=== PATIENT | female | born 1985 | race Caucasian/White ===

== ENCOUNTER 2017-11-03 11:17 | Outpatient (CLI) | payer OTHER ==
[2017-11-03 13:43] LABS: Hematocrit 41.6 % (36.0-47.0); Mean Platelet Volume 9.9 fL (7.4-10.4); Red Blood Cell (RBC) Count 4.39 mill/uL (4.20-5.40); White Blood Cell (WBC) Count 6.3 thou/uL (4.8-10.8)
[2017-11-03 14:00] LABS: Anion Gap 13 mmol/L (10-20); BUN (Urea Nitrogen) 7 mg/dL (7.0-18.7); Calc. Creatinine Clearance 0 mL/min (70-130); Calcium 9.8 mg/dL (7.8-10.44); Carbon Dioxide 27 mmol/L (22-29); Chloride 102 mmol/L (98-107); Estimated GFR-MDRD Greater than 90
--- NOTE | 2017-11-19 13:27 | EKG ---
Test Reason : Blood Pressure : / mmHG Vent. Rate : 078 BPM Atrial Rate : 078 BPM P-R Int : 136 ms QRS Dur : 074 ms QT Int : 368 ms P-R-T Axes : 067 083 053 degrees QTc Int : 419 ms Normal sinus rhythm Normal ECG No previous ECGs available Confirmed by KRYS PISANO MD ([id number]) on 11/19/2017 1:26:38 PM Referred By: TOM Confirmed By:KRYS PISANO MD
== END 2017-11-03 11:18 | disposition home or self-care (01) ==
LOC: LABBT 11:17
PROVIDERS: ATTEND Student in an Organized Health Care Education/Training Program
DX: Z01.812 Encounter for preprocedural laboratory examination (principal); R10.31 Right lower quadrant pain
CPT/HCPCS: 80048; 84443; 84703; 85027; 86850; 86900; 86901; 93005; 93010

== ENCOUNTER 2017-11-08 06:01 | Day surgery (SDC) | payer OTHER ==
[2017-11-03 11:41] VITALS: BMI 32.0
--- NOTE | 2017-11-08 05:56 | HP ---
DATE OF OPERATION: 11/08/2017 CHIEF COMPLAINT: Right lower quadrant pain. HISTORY OF PRESENT ILLNESS: A 32-year-old G0 who presented to my office with complaints of worsening right lower quadrant pain radiated up to the right upper quadrant and had a normal pelvic ultrasound as well as a right upper quadrant ultrasound and reports she has been seen at Urgent Care multiple t imes and diagnosed with urinary tract infections. However, symptoms would be alleviated on the short term and then come back. She also reports dyspareunia and pressure and pain with bowel movements an d urinary urgency. She has previously had a negative CT and pelvic ultrasound in June. She report s the pain is daily and constant, throbbing and stabbing and aching in the right lower quadrant. She takes tramadol that dulls the pain occasionally and mostly tells with that she has occasional nausea , no constipation or diarrhea. No worsening of symptoms on menses. MEDICATIONS: [place] Thyroid 90 mg p.o. daily, tramadol 50 mg p.o. q.6 hours p.r.n. PAST MEDICAL HISTORY: Louis's thyroiditis. PAST SURGICAL HISTORY: Denies. OBSTETRIC HISTORY: G0. GYNECOLOGIC HISTORY: No abnormal Paps, no STDs. SOCIAL HISTORY: Negative x3. ALLERGIES: No known drug allergies. FAMILY HISTORY: Paternal grandmother has breast cancer. Maternal grandfather has heart disease. REVIEW OF SYSTEMS: Negative except as noted in the HPI. PHYSICAL EXAMINATION: VITAL SIGNS: Blood pressure 112/62, pulse is 75, weight is 224, BMI of 33.1. GENERAL: No acute distress. CARDIAC: Regular rate and rhythm. LUNGS: Clear to auscultation bilaterally. ABDOMEN: Soft, nondistended, with tenderness in the lower abdomen, right greater than left. EXTREMITIES: No edema, cyanosis or clubbing. PELVIC: Deferred to the OR. ASSESSMENT AND PLAN: This is 32-year-old G0 with persistent right lower quadrant pain per diagnostic laparoscopy. I have discussed alternative of attempted medical management with oral contraceptives versus other hormonal therapy; however, patient desires surgical examination. Discussed the risk of surgery to include bleeding, infection, damage to surrounding structures including bowel, bladder, an d nerves. She voiced understanding and wished to proceed and has a documented pelvic ultrasound, her uterus measuring 7.84 cm, endometrial thickness of 12 mm, normal right and left ovaries, and no adne xal masses or free fluid. She will follow up with me in 2 weeks postoperative time.
[2017-11-08] MEDS ORDERED: Fentanyl 250 MCG/5 ML VIAL ONE (06:47)
[2017-11-08] MEDS ORDERED: Bupivacaine/Epinephrine 0.25% 30 ML VIAL ONE (06:54)
[2017-11-08] MEDS ORDERED: CEFAZOLIN/Water 2 GM/20 ML SYRINGE ONE (06:59)
[2017-11-08] MEDS ORDERED: Midazolam HCl 2 mg/2 ml Vial ONE (07:10)
[2017-11-08] MEDS ORDERED: Fentanyl 100 MCG/2 ML VIAL ONE ×2 (09:27→09:55)
[2017-11-08] MEDS ORDERED: Morphine 4 MG/ML VIAL ONE (10:29)
[2017-11-08] MEDS ORDERED: Promethazine HCl 25 MG/ML VIAL ONE (10:29)
[2017-11-08] MEDS ORDERED: diphenhydrAMINE 50 MG/ML VIAL ONE ×2 (10:37→11:29)
[2017-11-08] MEDS ORDERED: Ketorolac Tromethamine 30 MG/ML VIAL ONE (11:29)
[2017-11-08] MEDS ORDERED: Lidocaine 1% PF 5 ML VIAL ONE (11:29)
[2017-11-08] MEDS ORDERED: Propofol 200 MG/20 ML VIAL ONE (11:29)
[2017-11-08] MEDS ORDERED: Glycopyrrolate 0.2 MG/ML 5 ML SYRINGE ONE (11:29)
[2017-11-08] MEDS ORDERED: Ondansetron HCl/PF 4 MG/2 ML Vial ONE (11:29)
[2017-11-08] MEDS ORDERED: Dexamethasone 20 MG/5 ML VIAL ONE (11:29)
--- NOTE | 2017-11-08 13:58 | OP ---
DATE OF OPERATION: 11/08/2017 PREOPERATIVE DIAGNOSIS: Pelvic pain. POSTOPERATIVE DIAGNOSES: Right ovarian adhesion, right hematosalpinx and pelvic pain. PROCEDURES PERFORMED: Diagnostic laparoscopy, chromotubation, lysis of adhesions, and excision of le ft uterosacral nodule. SURGEON: Rosalinda Salazar M.D. MANGLE CATCHER: KALEN Pearson. ANESTHESIA: General endotracheal. ESTIMATED BLOOD LOSS: 5 mL. URINE OUTPUT: 150 mL of clear urine. INTRAVENOUS FLUIDS: 1100 mL crystalloid. COMPLICATIONS: None. PATHOLOGY: Left uterosacral nodule. DRAINS: None. FINDINGS: Cervix, and uterus were normal appearing, uterus sounded to 8 cm and the upper abdomen was normal. The appendix was normal with a normal left fallopian tube and ovary. The right fallopian t ube was initially blocked with the bloody fluid contained within it; however, with the pressure of th e chromotubation, this blockage was cleared and the tube was patent, left fallopian tube was patent. There was a thin adhesion of the right ovary to the pelvic sidewall and a small 1 cm follicular cyst on the right ovary. OPERATIVE TECHNIQUE: The patient was taken to the operating room where general anesthesia was obtain ed without difficulty. The patient was prepped and draped in a sterile fashion in the dorsal lithoto my position. After timeout was performed, a Hall catheter was placed in the bladder. A speculum wa s placed in the cervix. The anterior lip of cervix grasped with single tooth tenaculum. The uterus sounded to 8 cm and then was progressively dilated with Regan dilators and the diagnostic VCare was in serted at that sounded depth and the tip balloon was inflated and the manipulator secured. The specu lum and tenaculum were removed out of the vagina and legs were placed in low lithotomy. Attention wa s turned to the abdomen. The umbilicus was infiltrated with 0.25% Marcaine with epinephrine and a 5 mm skin incision was made. Veress needle was passed into the abdomen noting an opening pressure of 5 mmHg. Pneumoperitoneum was obtained without difficulty. The Veress needle was removed. The 5 mm t rocar was advanced into the abdomen and confirmed placement with a 5 mm camera. Trendelenburg was ob tained and a left lateral trocar was placed after infiltrating with anesthetic under direct visualiza tion about 5 mm without difficulty, manipulation of the pelvic structures revealed the above findings . A better documentation was performed. A 5 mm right lower trocar quadrant trocar was placed under direct visualization after infiltrating with anesthetic and a grasper was used to grab the uterosacra l nodule and the Hot Irene were used to excise the nodule, carefully staying superficially ensuring no injury to underlying structures and noting the proximity of the ureter to the nodule. Hemostasis was achieved with the Hot Irene and attention was turned to the right ovarian adhesion. The right o vary was elevated and fallopian tube was elevated and this adhesion was excised easily off the pelvic sidewall again staying superficially and noting underlying structures. Hemostasis was achieved with the Hot Irene and at that time, the fallopian tubes were chromopertubated with 5 mL of methylene bl ue diluted in 200 mL of saline. Approximately 20 mL of this was used to infuse through both tubes im mediately the left tube spilled and the right tube and took some pressure to open up blockage and the re was passage of a dark old bloody fluid from the tube and then spillage of methylene blue. The pel vis was suction irrigated. Hemostasis was noted and all instruments were removed out of the abdomen. Pneumoperitoneum was released and the trocars were removed. The port sites were closed with 4-0 Mo nocryl in a subcuticular fashion. Dermabond was applied and the VCare was then removed out of the ut erus and the cervix was examined and noted to be hemostatic. No active bleeding. The Hall catheter was removed out. The patient tolerated the procedure well. Sponge, lap, and needle counts were cor rect x2. The patient was taken to the recovery room in stable condition. Patient received Ancef 2 g marlen prior to discharge.
== END 2017-11-08 12:58 | disposition home or self-care (01) ==
LOC: SDC 06:01
PROVIDERS: ATTEND Student in an Organized Health Care Education/Training Program
PROC: 0UN Female Reproductive System, Release (ICD-10-PCS; principal; 2017-11-08)
PROC: 3E0P8KZ Introduction of Other Diagnostic Substance into Female Reproductive, Via Natural or Artificial Opening Endoscopic (ICD-10-PCS; principal; 2017-11-08)
PROC: 0UB44ZX Excision of Uterine Supporting Structure, Percutaneous Endoscopic Approach, Diagnostic (ICD-10-PCS; principal; 2017-11-08)
DX: N73.1 Chronic parametritis and pelvic cellulitis (principal); N85.8 Other specified noninflammatory disorders of uterus; E06.3 Autoimmune thyroiditis
CPT/HCPCS: 88305; 96374; 96375; J1100; J1200; J1885; J2001; J2250; J2270; J2405; J2550; J2704; J3010; Q9968

== ENCOUNTER 2017-11-18 23:02 | Observation (INO) | payer OTHER ==
[2017-11-19 01:23] VITALS: BMI 31.7
[2017-11-19] MEDS ORDERED: Ondansetron HCl/PF 4 MG/2 ML Vial IVP PRN (04:00)
[2017-11-19] MEDS ORDERED: Enoxaparin Sodium 40 MG/0.4 ML SYRINGE SC SCH (04:00)
[2017-11-19] MEDS ORDERED: Sodium Chloride 0.9% 10 ML ONE (04:09)
[2017-11-19] MEDS: Sodium Chloride 0.9% 1,000 ML IV SCH ×2 (04:22→15:55)
[2017-11-19 05:45] LABS: #Eosinphils 0.1 thou/uL (0.0-0.7); #Lymphocytes 2.2 thou/uL (1.20-3.40); #Monocytes 0.6 thou/uL (0.11-0.59); #Neutrophils 4.2 thou/uL (1.40-6.50); %Basophils 0.5 % (0.0-1.0); %Eosinophils 1.3 % (0.0-10.0); %Monocytes 7.8 % (0.0-10.0); %Neutrophils 59.3 % (42.0-75.0); Hemoglobin 12.6 g/dL (12.0-16.0); Mean Corpuscular HGB CONC 33.6 g/dL (32.0-36.0); Mean Corpuscular Hemoglobin 31.9 pg (27.0-31.0); Mean Corpuscular Volume 94.7 fl (81.0-99.0); Mean Platelet Volume 9.8 fL (7.4-10.4); Platelet Count 186 thou/uL (130-400); Red Blood Cell (RBC) Count 3.97 mill/uL (4.20-5.40)
[2017-11-19 06:01] LABS: ALT (SGPT) 54 U/L (8-55); AST (SGOT) 29 U/L (5-34); Alkaline Phosphatase 71 U/L (40-150); Anion Gap 13 mmol/L (10-20); BUN (Urea Nitrogen) 12 mg/dL (7.0-18.7); Bilirubin, Total 1.1 mg/dL (0.2-1.2); Calc. Creatinine Clearance 186 mL/min (70-130); Calcium 9.2 mg/dL (7.8-10.44); Carbon Dioxide 26 mmol/L (22-29); Chloride 105 mmol/L (98-107); Estimated GFR-MDRD Greater than 90; Globulin 2.7 g/dL (2.4-3.5); Glucose 89 mg/dL (70-105); Lipase 49 U/L (8-78); Potassium 3.5 mmol/L (3.5-5.1); Protein, Total 6.7 g/dL (6.0-8.3); Sodium 140 mmol/L (136-145)
[2017-11-19 06:16] LABS: Free T4 (Free Thyroxine) 0.57 ng/dL (0.70-1.48); Thyroid Stimulating Hormone 1.7064 uIU/mL (0.35-4.94)
--- NOTE | 2017-11-19 07:40 | HP ---
DATE OF ADMISSION: 11/19/2017 TIME OF SERVICE: 0330. PRIMARY CARE PHYSICIAN: Cinthia Gaffney M.D. CHIEF COMPLAINT: Epigastric to right upper quadrant pain, nausea. HISTORY OF PRESENT ILLNESS: Ms. Joaquin is a pleasant 32-year-old female with history of Louis's thyroiditis and resultant hypothyroidism, and a recent pelvic pain status post laparoscopy on 11/08/2017. The patient presented to an outside ER at [facility] earlier today for reevaluation of abdominal pain. She describes as a sharp pain in the epigastrium that seems to be migrating more and more to the right upper quadrant associated with nausea and vomiting. The patient had some pelvic pain really started back in June. Further evaluation showed a pelvic mass in place. She did have diagnostic laparoscopy with Dr. Salazar back on 11/08/2017, had exploratory laparoscopy, lysis of adhesions and excision of a left uterosacral nodule. Pathology of that showed a calcification and foreign body reaction and fibrous scar tissue. She has felt better postop from that for about 3 days and really feel like she was doing better and developed an epigastric pain that seems to radiate more down to the right upper quadrant. She states this pain is worse with any kind of food intake. Seems to be worse with palpation at times, but not others. She denies any fevers or chills. She is having some gas passage, but not much in the way stools certainly no bleeding. She had no fevers or chills, no chest pain or shortness of breath. She actually presented at the outside the emergency department at [facility] on 11/15 [address] was [address] Evans. Her pain seemed to be getting worse today, so she presented back to the emergency department on 11/18 and was sent here for further workup. She is scheduled to have a HIDA scan done on 11/30/[address] Evans was contacted, he recommended admission for HIDA scan, and Dr. Ojeda requested to readmit. The patient is feeling better at the present. No new complaints. PAST MEDICAL HISTORY: 1. Hypothyroidism. 2. She is G0. PAST SURGICAL HISTORY: Include; 1. [place] teeth removed. 2. Diagnostic laparoscopy as above. HOME MEDICATIONS: 1. [place] thyroid 90 mg daily. 2. Tramadol 50 mg q.6 hours p.r.n. 3. Zofran 4 mg sublingual p.r.n. nausea. 4. Tylenol #3 as needed for pain. She will use that for 3 or 4 nights. ALLERGIES: GLUTEN. FAMILY HISTORY: Significant for paternal grandmother with some breast cancer, but has estrogen receptor and BRC-ABL negative. She has paternal grandfather that had coronary artery disease and from aortic dissection. SOCIAL HISTORY: Negative for habits x3. She has three adopted children, is . 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 She has no history of STDs and never had abnormal Pap smear. REVIEW OF SYSTEMS: A 10-point review of systems was performed, negative for all other systems except stated as per HPI. PHYSICAL EXAMINATION: VITAL SIGNS: Temperature 98.6, pulse 82, blood pressure 123/70, respiratory 20 , satting 99% on room air. GENERAL: She is awake, alert, oriented x3, well-developed, well-nourished, white female, appears to be in zero distress. HEENT: Normocephalic, atraumatic. Pupils are equal and reactive bilaterally, mucous membranes are moist. She has no visible lesion or thrush. NECK: Supple without lymphadenopathy, JVD or thyromegaly. LUNGS: Clear to auscultation bilaterally without wheezes, rales, or rhonchi. CARDIOVASCULAR: Normal S1, S2. No S3 or S4. No murmurs or rubs. ABDOMEN: Soft. It is tender, slightly to the right upper quadrant, worse with deeper palpation. There is no rebound, rigidity, or guarding. She has hyperactive bowel sounds present in all 4 quadrants. There is no discoloration. EXTREMITIES: No cyanosis, no clubbing, no edema. She has 2+ dorsalis pedis, and posterior tibial pulses bilaterally. SKIN: Warm, moist, and well perfused without rashes or lesions. NEUROLOGIC: Cranial nerves II-XII grossly intact, 5/5 strength, normal speech, and no focal deficits. MUSCULOSKELETAL: Normal to inspection without any inflamed joints or palpable effusions. LABORATORY DATA: Earlier on 11/18/2017 showed a CMP was fairly normal. Sodium 140, potassium 3.6, chloride 101, bicarbonate 26, BUN 7, creatinine 0.6, and glucose of 95, total bilirubin 1.0, albumin 4.2, alkaline phosphatase normal 85 , AST slightly elevated at 46 and ALT slightly elevated at 66. CBC showed a white count of 6.0, hemoglobin 12.8, hematocrit 38.1, platelets 196,000 with normal differential. RADIOGRAPHIC STUDIES: She had an abdominal ultrasound that is negative. No Garcia sign, no ductal dilatation, the visualized portion of the pancreas appeared normal. No renal stones, and gallbladder appeared normal. Her CT scan of the abdomen and pelvis showed no acute intra-abdominal pathology. Did have some air at the umbilicus from her recent procedure, but otherwise negative. ASSESSMENT AND PLAN: 1. Epigastric to right upper quadrant abdominal pain with nausea. 2. Acquired hypothyroidism secondary to Louis's thyroiditis. PLAN: We will place in observation. We will get repeat labs in the morning. We will add a lipase to ensure this is not occult pancreatitis. Per Dr. Evans and Dr. Ojeda's request we will get a HIDA scan. I informed the patient the current plan and her need to likely eat a fatty meal to get good results. She certainly would attempt. We will follow up with the results of that, she has new symptoms, she has asked to let the nurses' know right away. ДМИТРИЙ
[2017-11-19] MEDS: Famotidine/PF 20 mg/2ml Vial SLOW IVP SCH ×2 (08:45→20:39)
[2017-11-19] MEDS ORDERED: Morphine 5 mg/5 ml in 0.9% NaCl/PF SYRINGE SLOW IVP PRN (15:35)
[2017-11-19] MEDS ORDERED: Morphine PF 1 MG/ML SYR IVP PRN (16:00)
--- NOTE | 2017-11-19 16:53 | PDOC.PN ---
- Subjective Encounter Start Date: 11/19/17 Encounter Start Time: 16:51 Ms. Joaquin was seen today in follow-up of abdominal pain. she says she continues to have pain in the right upper side under her ribs. She also has been having nausea off and on. - Objective Resuscitation Status: Resuscitation Status FULL:Full Resuscitation MAR Reviewed: Yes Vital Signs & Weight: Vital Signs (12 hours) Temp Pulse Resp BP Pulse Ox 11/19/17 14:52 98.3 F 67 18 123/63 97 11/19/17 08:00 97.8 F 62 17 109/59 L 97 Weight Admit Weight 215 lb Weight 215 lb I&O: 11/18/17 11/19/17 11/20/17 06:59 06:59 06:59 Intake Total 200 Balance 200 Result Diagrams: 11/19/17 05:21 11/19/17 05:21 Phys Exam - Physical Examination HEENT: PERRLA Respiratory: no wheezing, no rales, no rhonchi Cardiovascular: RRR, no significant murmur, no rub Gastrointestinal: soft, no distention, positive bowel sounds + RUQ tenderness Musculoskeletal: no edema Dx/Plan (1) Biliary colic Code(s): K80.50 - CALCULUS OF BILE DUCT W/O CHOLANGITIS OR CHOLECYST W/O OBST Status: Acute (2) Chronic cholecystitis Code(s): K81.1 - CHRONIC CHOLECYSTITIS Status: Acute (3) Hypothyroidism Code(s): E03.9 - HYPOTHYROIDISM, UNSPECIFIED Status: Acute - Plan * Chronic Cholecystitis- Discussed with Dr. Ojeda. She continues to have symptoms- plan for Cholecystectomy * Hypothyroidism- she is mildly under-replaced- will go ahead a give a dose of her usual thyroid medication, and restart as early as possibly post op.
--- NOTE | 2017-11-19 17:07 | NM ---
HEPATOBILIARY SCAN: HISTORY: Persistent nausea after eating, right upper quadrant pain. RADIOPHARMACEUTICAL: 5 mCi technetium-99m mebrofenin injected intravenously. CCK-8: 1.9 mcg introduced intravenously 30 minutes prior to imaging. The same dosage was repeated, a nd 30 min infusion was given intravenously on filling of the gallbladder to evaluate gallbladder cont ractility. FINDINGS: There is good tracer extraction by the liver with prompt excretion into the biliary tract and small b owel loops, and normal filling of the gallbladder. The calculated gallbladder ejection fraction follo wing CCK-8 administration measures 29%. IMPRESSION: Chronic cholecystitis/gallbladder dyskinesia. POS: [facility]
[2017-11-19] MEDS ORDERED: Thyroid,Pork 90 MG TAB PO SCH (17:15)
[2017-11-19] MEDS ORDERED: Morphine 10 MG/ML CARPUJECT IV PRN (22:09)
[2017-11-19] MEDS ORDERED: Morphine PF 1 MG/ML SYR IV PRN (22:15)
[2017-11-20] MEDS: Sodium Chloride 0.9% 1,000 ML IV SCH ×2 (02:28→15:15)
[2017-11-20 06:38] LABS: #Basophils 0.1 thou/uL (0.0-0.2); #Eosinphils 0.1 thou/uL (0.0-0.7); #Lymphocytes 1.8 thou/uL (1.20-3.40); #Monocytes 0.6 thou/uL (0.11-0.59); %Basophils 0.9 % (0.0-1.0); %Eosinophils 1.3 % (0.0-10.0); %Lymphocytes 27.8 % (21.0-51.0); %Monocytes 8.5 % (0.0-10.0); %Neutrophils 61.5 % (42.0-75.0); Hemoglobin 12.2 g/dL (12.0-16.0); Mean Corpuscular HGB CONC 33.3 g/dL (32.0-36.0); Mean Corpuscular Hemoglobin 31.6 pg (27.0-31.0); Mean Corpuscular Volume 94.9 fl (81.0-99.0); Mean Platelet Volume 9.4 fL (7.4-10.4); Platelet Count 180 thou/uL (130-400); Red Blood Cell (RBC) Count 3.87 mill/uL (4.20-5.40); White Blood Cell (WBC) Count 6.5 thou/uL (4.8-10.8)
[2017-11-20] MEDS ORDERED: Sodium Chloride 0.9% 10 ML ONE (07:48)
[2017-11-20] MEDS: Famotidine/PF 20 mg/2ml Vial SLOW IVP SCH (07:52)
[2017-11-20] MEDS ORDERED: cefOXitin 2 GM in Sodium Chloride 0.9% 100 ML IVPB SCH (08:45)
[2017-11-20] MEDS ORDERED: Bupivacaine/Epinephrine 0.25% 30 ML VIAL ONE (08:55)
[2017-11-20] MEDS ORDERED: Iothalamate Meglumine 60% 50 ML VIAL FS ONE (08:55)
[2017-11-20] MEDS ORDERED: FLU VACC QS2017-18 36 mo. & older 0.5 ML SYRINGE IM ONE (09:00)
[2017-11-20] MEDS ORDERED: Thyroid,Pork 90 MG TAB PO SCH (09:00)
[2017-11-20] MEDS ORDERED: Fentanyl 100 MCG/2 ML VIAL ONE ×2 (09:38→12:03)
--- NOTE | 2017-11-20 10:00 | CON ---
DATE OF CONSULTATION: 11/20/2017 CHIEF COMPLAINT: Right upper quadrant pain. HISTORY OF PRESENT ILLNESS: This is a 32-year-old female with a several month history of intermitten t mid epigastric and right upper quadrant pain. It radiates to the back. She had a laparoscopy on for a blocked fallopian tube and she says that since then it has gotten worse. She says the pain is worse with eating or movement. No fevers or chills. There is nausea, no vomiting. She had an ultrasound that was negative. CT negative. HIDA scan, however, shows a low ejection fraction. PAST MEDICAL HISTORY: Hypothyroidism. PAST SURGICAL HISTORY: Recent laparoscopic tubal procedure. MEDICATIONS: [place] thyroid. ALLERGIES: No known drug allergies. SOCIAL HISTORY: She is . 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 No tobacco or alcohol. FAMILY HISTORY: Gallbladder problems and heart disease. PHYSICAL EXAMINATION: VITAL SIGNS: Temperature 98, pulse 63, blood pressure 109/60. GENERAL: She is a well-developed, well-nourished female, in no apparent distress. HEENT: No jaundice. LUNGS: Clear. HEART: Regular rate and rhythm. ABDOMEN: Soft, nondistended, nontender. EXTREMITIES: Unremarkable. LABORATORY DATA AND X-RAY FINDINGS: White count 6.5, H&H is 12 and 35, platelet count 180. Her live r function tests today are normal, but a week ago, she had some elevated transaminases. ASSESSMENT: Chronic cholecystitis. PLAN: Laparoscopic cholecystectomy with cholangiogram. CONSENT: I have discussed the planned procedure as well as risk of bleeding, infection, injury to bi le duct, injury to bowel, need to open. She understands and gives informed consent.
[2017-11-20] MEDS ORDERED: cefOXitin 2 GM, Syringe 1 ML in Sterile Water 10 ML SLOW IVP SCH (11:00)
[2017-11-20] MEDS ORDERED: Calcium Carbonate 500 MG ChewTAB PO PRN (11:42)
[2017-11-20] MEDS ORDERED: Dextrose 50% Abboject 50 ML SYRINGE SLOW IVP PRN (11:42)
[2017-11-20] MEDS ORDERED: Ketorolac Tromethamine 30 MG/ML VIAL IVP PRN (11:42)
[2017-11-20] MEDS ORDERED: Meperidine HCl/PF 25 MG/ML VIAL SLOW IVP PRN (11:42)
[2017-11-20] MEDS ORDERED: Morphine PF 1 MG/ML SYR IVP PRN (11:42)
[2017-11-20] MEDS ORDERED: Mag-Al 1200 mg/1200 mg/30 ML UDCUP PO PRN (11:42)
[2017-11-20] MEDS ORDERED: HYDROcodone/Acetaminophen 10/325 mg Tablet PO PRN ×2 (11:42)
[2017-11-20] MEDS ORDERED: hydrALAZINE 20 MG/ML VIAL SLOW IVP PRN (11:42)
[2017-11-20] MEDS ORDERED: Morphine 5 mg/5 ml in 0.9% NaCl/PF SYRINGE SLOW IVP PRN (11:42)
[2017-11-20] MEDS ORDERED: Promethazine HCl 25 MG/ML VIAL IM PRN ×2 (11:42)
[2017-11-20] MEDS ORDERED: Promethazine HCl 25 MG/ML VIAL SLOW IVP PRN (11:42)
[2017-11-20] MEDS ORDERED: Ondansetron HCl/PF 4 MG/2 ML Vial IVP PRN ×2 (11:42)
[2017-11-20] MEDS ORDERED: Dextrose 5% in Water 1,000 ML IV PRN (11:42)
[2017-11-20] MEDS ORDERED: D5 1/2 NS w/20 mEq KCL 1,000 ML IV SCH (11:45)
[2017-11-20] MEDS ORDERED: Ketorolac Tromethamine 30 MG/ML VIAL IVP SCH (12:00)
[2017-11-20] MEDS ORDERED: Propofol 200 MG/20 ML VIAL ONE (12:15)
[2017-11-20] MEDS ORDERED: Ondansetron HCl/PF 4 MG/2 ML Vial ONE (12:15)
[2017-11-20] MEDS ORDERED: Glycopyrrolate 0.2 MG/ML 5 ML SYRINGE ONE (12:15)
[2017-11-20] MEDS ORDERED: Lidocaine 1% PF 5 ML VIAL ONE (12:15)
[2017-11-20] MEDS ORDERED: Dexamethasone 20 MG/5 ML VIAL ONE (12:15)
--- NOTE | 2017-11-20 13:58 | OP ---
PREOPERATIVE DIAGNOSIS: Chronic cholecystitis. SURGEON: Juan Pablo Ojeda M.D. PROCEDURE PERFORMED: Laparoscopic cholecystectomy with intraoperative cholangiogram. INDICATIONS: This is a 32-year-old female who has had a several month history of intermittent right upper quadrant pain radiating to the back associated with nausea. Ultrasound negative. CT negative. HIDA scan showed a low ejection fraction. She also had a couple of elevated liver function tests. FINDINGS: She had a very small caliber cystic duct. Intraoperative cholangiogram was normal. DESCRIPTION OF PROCEDURE: After informed consent was obtained, the patient was taken to the operatin g room and given general endotracheal anesthesia, placed in the supine position. The abdomen was pre pped and draped in the usual fashion. Local anesthesia infiltrated subcutaneously and deep. A subum bilical incision was performed, subcu divided sharply. The fascia grasped and two stay sutures of 0 Vicryl placed to either side of midline. Midline incised. Digital palpation revealed no local adhes ions. A blunt 10/12 mm trocar inserted. Pneumoperitoneum was created to a pressure of 15 mmHg. A 0 degree laparoscope inserted. Under direct vision, three 5 mm ports placed subcostally. The gallbla dder grasped and advanced superiorly. The peritoneum was lysed distally to reveal the cystic duct an d artery and critical view. A clip was placed at the base of the gallbladder. An incision made in t he cystic duct. It was very small caliber. The Arrow cholangiocatheter was inserted. The balloon i nflated and an attempt made at an intraoperative cholangiogram, but it showed a very irregular patter n, which turned out to be extravasation, so I had to go back in and repositioned the catheter into th e cystic duct. At this time, the cholangiogram showed free flow in the duodenum, no filling defects, normal intrahepatic ducts. The catheter removed. The duct triply ligated with Hemoclips and divide d. The artery triply ligated with Hemoclips and divided. The gallbladder was removed from its fossa utilizing electrocautery, removed from the abdomen through the umbilical port. Hemostasis was assur ed. The abdomen irrigated and irrigation fluid removed. Trocars and retractors removed. The fascia closed with interrupted 0 Vicryl suture. The skin closed with interrupted 4-0 Rapide. Dermabond ap plied. The patient tolerated the procedure well and transferred to recovery in good condition. Spon ge and needle count verified correct x2.
--- NOTE | 2017-11-20 14:03 | PDOC.PN ---
- Subjective Encounter Start Date: 11/20/17 Encounter Start Time: 14:01 Ms. Joaquin was seen today in follow-up of chronic cholecystitis. She notes a bit of right upper quandrant soreness, and nausea, but otherwise ok. - Objective Resuscitation Status: Resuscitation Status FULL:Full Resuscitation MAR Reviewed: Yes Vital Signs & Weight: Vital Signs (12 hours) Temp Pulse Resp BP Pulse Ox 11/20/17 07:50 97.7 F 66 16 11/20/17 07:00 97.7 F 66 16 128/76 100 11/20/17 04:15 98.0 F 63 16 109/60 96 Weight Admit Weight 215 lb Weight 215 lb I&O: 11/19/17 11/20/17 11/21/17 06:59 06:59 06:59 Intake Total 200 1500 0 Balance 200 1500 0 Result Diagrams: 11/20/17 06:16 11/19/17 05:21 Phys Exam - Physical Examination HEENT: PERRLA Respiratory: no wheezing, no rales, no rhonchi, clear to auscultation bilateral Cardiovascular: RRR, no significant murmur Gastrointestinal: soft + mild RUQ tenderness no rebound or guarding Musculoskeletal: no edema Dx/Plan (1) Biliary colic Code(s): K80.50 - CALCULUS OF BILE DUCT W/O CHOLANGITIS OR CHOLECYST W/O OBST Status: Acute (2) Chronic cholecystitis Code(s): K81.1 - CHRONIC CHOLECYSTITIS Status: Acute (3) Hypothyroidism Code(s): E03.9 - HYPOTHYROIDISM, UNSPECIFIED Status: Acute - Plan * Chronic Cholecystitis- s/p Lap fallon- she is clinically stable * Hopefully home later this afternoon.
[2017-11-20 16:38] VITALS: BP 118/65; TEMP 97.6
--- NOTE | 2017-11-20 18:16 | DIS ---
DATE OF ADMISSION: 11/18/2017. DATE OF DISCHARGE: 11/20/2017. PRIMARY CARE PHYSICIAN: Cinthia Gaffney MD DISCHARGE DISPOSITION: Home. PRIMARY DISCHARGE DIAGNOSES: 1. Chronic cholecystitis with gallbladder dysfunction. 2. History of hypothyroidism. 3. Obesity. DISCHARGE MEDICATIONS: Zofran 4 mg p.o. q.8 hours p.r.n. nausea and vomiting, as well as Helper 10/32 5 q.4 hours p.r.n. pain. CODE STATUS: FULL CODE. ALLERGIES: GLUTEN. PROCEDURES DONE DURING THE ADMISSION: The patient had a HIDA scan or hepatobiliary scan, which showe d evidence of chronic cholecystitis and gallbladder dyskinesia and a gallbladder ejection fraction wh ich was measured at 29%. HOSPITAL COURSE: Ms. Joaquin is a pleasant 32-year-old female who has had problems with right upper quadrant pain and nausea off and on since June. It has been intermittent, but then after having re cent pelvic surgery, her symptoms seemed to recur. She was placed in observation and a HIDA scan was obtained. It showed that she had some gallbladder dyskinesia as well as evidence of chronic cholecy stitis. General Surgery was consulted and she underwent laparoscopic cholecystectomy. The plan is f or her to be discharged later today with close followup with her primary care physician in 1-2 weeks.
[2017-11-20] MEDS ORDERED: Famotidine/PF 20 mg/2ml Vial SLOW IVP SCH (21:00)
[2017-11-20] MEDS ORDERED: Famotidine 20 MG TAB PO SCH (21:00)
[2017-11-21] MEDS ORDERED: Enoxaparin Sodium 40 MG/0.4 ML SYRINGE SC SCH (09:00)
--- NOTE | 2017-11-21 11:52 | RAD ---
INTRAOPERATIVE CHOLANGIOGRAM 2 VIEWS: DATE: 11/20/17. TIME: 11:22 a.m. HISTORY: A 32-year-old female with right upper quadrant abdominal pain and biliary dyskinesia. FINDINGS: Injection into the cystic duct stump demonstrates a normal-caliber common bile duct and normal-calibe r common hepatic duct, and a few nondilated biliary radicals. The superior portion of the common hep atic duct is obscured by a dense, large object. No filling defect is identified. There is contrast material in the second stage of the duodenum. IMPRESSION: No evidence of biliary obstruction or choledocholithiasis. POS: [facility]
== END 2017-11-20 17:29 | disposition home or self-care (01) ==
LOC: 3SE 23:02
PROVIDERS: ADMIT Internal Medicine Infectious Disease; ATTEND Internal Medicine Infectious Disease
PROC: 0FT44ZZ Resection of Gallbladder, Percutaneous Endoscopic Approach (ICD-10-PCS; principal; 2017-11-18)
PROC: BF131ZZ Fluoroscopy of Gallbladder and Bile Ducts using Low Osmolar Contrast (ICD-10-PCS; 2017-11-18)
DX: K81.1 Chronic cholecystitis (principal); Z98.890 Other specified postprocedural states; E06.3 Autoimmune thyroiditis; E03.9 Hypothyroidism, unspecified; E66.9 Obesity, unspecified; Z68.31 Body mass index [BMI] 31.0-31.9, adult; Z79.899 Other long term (current) drug therapy; Z91.018 Allergy to other foods; Z82.49 Family history of ischemic heart disease and other diseases of the circulatory system
CPT/HCPCS: 36415; 47532; 78227; 80053; 83690; 84439; 84443; 85025; 88304; 96361; 96372; 96374; 96375; 96376; A4216; A9537; G0378; J0694; J1100; J1650; J2001; J2270; J2274; J2405; J2704; J3010; J7050; Q9961; S0028

== ENCOUNTER 2018-11-07 18:17 | Emergency (ER) | payer OTHER ==
[2018-11-07 18:52] LABS: Bilirubin Negative (Negative); Blood, Urine Negative (Negative); Clarity CLEAR (Clear); Glucose, Urine (Dipstick) Negative (Negative); Leukocyte Trace (Negative); Nitrite Negative (Negative); Protein, Urine (Dipstick) Negative (Neg-Trace); Specific Gravity, Urine 1.003 (1.002-1.036); Urobilinogen 0.2 mg/dL (0.2-1.0); pH, Urine 7.5 (5.0-9.0)
[2018-11-07 19:00] LABS: Pregnancy Test - Urine (BHCG) Negative (Negative); Specific Gravity 1.003 (1.002-1.036)
[2018-11-07 19:01] LABS: Pregu Control Background? CLEAR/WHITE (CLR/WHITE); Pregu Control Bar Appear? YES (CONTROL BAR)
[2018-11-07 19:04] LABS: Bacteria/HPF None Seen HPF (None Seen); Hyaline Casts/LPF 0-3 HYALINE CAST LPF (0-3 Hyaline); Pathc Cast-AUWi Flag 0.43 (0-2.49); RBC/HPF 0-3 HPF (0-3); Squamous Epithelial 0-3 HPF (0-3); WBC/HPF 0-3 HPF (0-3)
[2018-11-07] MEDS ORDERED: HYDROcodone/Acetaminophen 5/325 mg Tablet ONE (19:05)
[2018-11-07 19:25] LABS: #Basophils 0.1 thou/uL (0.0-0.2); #Eosinphils 0.1 thou/uL (0.0-0.7); #Lymphocytes 1.7 thou/uL (1.20-3.40); #Monocytes 0.4 thou/uL (0.11-0.59); #Neutrophils 3.2 thou/uL (1.40-6.50); %Basophils 1.5 % (0.0-1.0); %Lymphocytes 31.5 % (21.0-51.0); %Monocytes 7.2 % (0.0-10.0); %Neutrophils 58.8 % (42.0-75.0); Hemoglobin 12.8 g/dL (12.0-16.0); Mean Corpuscular Hemoglobin 31.8 pg (27.0-31.0); Mean Corpuscular Volume 93.6 fL (78.0-98.0); Mean Platelet Volume 10.9 fL (7.4-10.4); Platelet Count 157 thou/uL (130-400); RBC Distribution Width 11.3 % (11.5-14.5); Red Blood Cell (RBC) Count 4.02 mill/uL (4.20-5.40); White Blood Cell (WBC) Count 5.5 thou/uL (4.8-10.8)
[2018-11-07 19:51] LABS: ALT (SGPT) 21 U/L (8-55); AST (SGOT) 23 U/L (5-34); Albumin 4.3 g/dL (3.5-5.0); Alkaline Phosphatase 59 U/L (40-150); Anion Gap 9 mmol/L (10-20); Bilirubin, Total 0.8 mg/dL (0.2-1.2); Calc. Creatinine Clearance 0 mL/min (70-130); Calcium 9.2 mg/dL (7.8-10.44); Carbon Dioxide 29 mmol/L (22-29); Chloride 104 mmol/L (98-107); Estimated GFR-MDRD Greater than 90; Glucose 79 mg/dL (70-105); Lipase 18 U/L (8-78); Potassium 3.8 mmol/L (3.5-5.1); Protein, Total 7.3 g/dL (6.0-8.3); Sodium 138 mmol/L (136-145)
[2018-11-07 19:54] LABS: BUN (Urea Nitrogen) 8 mg/dL (7.0-18.7)
== END 2018-11-07 20:03 | disposition home or self-care (01) ==
LOC: ERS 18:17
DX: R10.2 Pelvic and perineal pain (principal); E03.9 Hypothyroidism, unspecified; Z79.899 Other long term (current) drug therapy
CPT/HCPCS: 36415; 80053; 81003; 81015; 81025; 83690; 85025; 99284

== ENCOUNTER 2018-11-17 18:00 | Emergency (ER) | payer OTHER ==
[2018-11-17] MEDS ORDERED: Morphine 4 MG/ML VIAL ONE ×2 (18:36→20:54)
[2018-11-17 19:03] LABS: #Basophils 0.1 thou/uL (0.0-0.2); #Eosinphils 0.1 thou/uL (0.0-0.7); #Lymphocytes 1.9 thou/uL (1.20-3.40); #Monocytes 0.6 thou/uL (0.11-0.59); #Neutrophils 3.4 thou/uL (1.40-6.50); %Basophils 0.9 % (0.0-1.0); %Eosinophils 1.4 % (0.0-10.0); %Lymphocytes 32.2 % (21.0-51.0); %Monocytes 9.3 % (0.0-10.0); %Neutrophils 56.2 % (42.0-75.0); Hemoglobin 13.7 g/dL (12.0-16.0); Mean Corpuscular HGB CONC 35.3 g/dL (32.0-36.0); Mean Corpuscular Volume 90.9 fL (78.0-98.0); Mean Platelet Volume 10.1 fL (7.4-10.4); Platelet Count 165 thou/uL (130-400); RBC Distribution Width 11.3 % (11.5-14.5); Red Blood Cell (RBC) Count 4.27 mill/uL (4.20-5.40)
[2018-11-17 19:17] LABS: BHCG - Serum Negative (NEGATIVE); Pregs Control Background? CLEAR/WHITE (CLR/WHITE); Pregs Control Bar Appear? YES (CONTROL BAR)
[2018-11-17 19:19] LABS: ALT (SGPT) 28 U/L (8-55); AST (SGOT) 30 U/L (5-34); Albumin 4.1 g/dL (3.5-5.0); Alkaline Phosphatase 73 U/L (40-150); Anion Gap 12 mmol/L (10-20); BUN (Urea Nitrogen) 7 mg/dL (7.0-18.7); Bilirubin, Total 0.7 mg/dL (0.2-1.2); Calc. Creatinine Clearance 0 mL/min (70-130); Calcium 9.1 mg/dL (7.8-10.44); Carbon Dioxide 20 mmol/L (22-29); Chloride 107 mmol/L (98-107); Estimated GFR-MDRD Greater than 90; Globulin 3.2 g/dL (2.4-3.5); Glucose 92 mg/dL (70-105); Lipase 12 U/L (8-78); Potassium 3.2 mmol/L (3.5-5.1); Protein, Total 7.3 g/dL (6.0-8.3); Sodium 136 mmol/L (136-145)
[2018-11-17] MEDS ORDERED: Ketorolac Tromethamine 30 MG/ML VIAL ONE (20:54)
--- NOTE | 2018-11-17 20:56 | ULT ---
ENDOVAGINAL PELVIC ULTRASOUND: 11/17/18 HISTORY: Surgery for blood in the right fallopian tube. Negative HCG. Pelvic pain. COMPARISON: None. TECHNIQUE: Endovaginal imaging of the pelvis is performed. Ovaries are interrogated with florian scale, color flow, doppler imaging, with spectral waveform analysis. FINDINGS: Retroverted uterus is noted. No myometrial masses. the uterus measures 7.7 x 4.1 x 5.2 cm. Endometriu m has a homogeneous echotexture measuring 1.1 cm. Right ovary has a normal echotexture measuring 3.6 x 2.2 x 2.2 cm. Left ovary has a normal echotextur e measuring 2.8 x 2.0 x 1.9 cm. Small amount of free fluid in the cul-de-sac. OVARIAN DOPPLER: Vascular flow to both ovaries. IMPRESSION: Unremarkable pelvic ultrasound. POS: [facility]
[2018-11-17 21:58] LABS: Bilirubin Negative (Negative); Blood, Urine Negative (Negative); Clarity CLEAR (Clear); Glucose, Urine (Dipstick) Negative (Negative); Leukocyte Negative (Negative); Nitrite Negative (Negative); Protein, Urine (Dipstick) Negative (Neg-Trace); Specific Gravity, Urine 1.012 (1.002-1.036); pH, Urine 7.5 (5.0-9.0)
== END 2018-11-17 22:34 | disposition home or self-care (01) ==
LOC: ERS 18:00
DX: G89.29 Other chronic pain (principal); R10.2 Pelvic and perineal pain; E03.9 Hypothyroidism, unspecified; Z79.899 Other long term (current) drug therapy
CPT/HCPCS: 36415; 76856; 80053; 81003; 83690; 84703; 85025; 96361; 96372; 96374; 96376; J1885; J2270

== ENCOUNTER 2018-11-27 10:41 | Outpatient (CLI) | payer OTHER ==
[2018-11-27 12:35] LABS: Hemoglobin 13.1 g/dL (12.0-16.0); Mean Corpuscular HGB CONC 33.6 g/dL (32.0-36.0); Mean Corpuscular Volume 92.2 fL (78.0-98.0); Mean Platelet Volume 10.6 fL (7.4-10.4); Platelet Count 189 thou/uL (130-400); RBC Distribution Width 11.3 % (11.5-14.5); Red Blood Cell (RBC) Count 4.23 mill/uL (4.20-5.40); White Blood Cell (WBC) Count 5.6 thou/uL (4.8-10.8)
[2018-11-27 12:53] LABS: BHCG - Serum Negative (NEGATIVE); Pregs Control Background? CLEAR/WHITE (CLR/WHITE); Pregs Control Bar Appear? YES (CONTROL BAR)
== END 2018-11-27 10:42 | disposition home or self-care (01) ==
LOC: LABBT 10:41
PROVIDERS: ATTEND Obstetrics & Gynecology
DX: Z01.812 Encounter for preprocedural laboratory examination (principal); N83.6 Hematosalpinx
CPT/HCPCS: 84703; 85027; 86850; 86900; 86901

== ENCOUNTER 2018-11-29 09:20 | Day surgery (SDC) | payer OTHER ==
[2018-11-27 11:13] VITALS: BMI 29.8
--- NOTE | 2018-11-29 07:18 | HP ---
REASON FOR ADMISSION: Recurrent right lower quadrant pain. SCHEDULED PROCEDURE: Laparoscopic right salpingectomy, possible right oophorectomy with da Gena robot. HISTORY OF PRESENT ILLNESS: Ms. Joaquin is a 33-year-old zero, who previously had a laparoscopic drainage of a right hematosalpinx and excision of scarring that was felt to be possible endometriosis by Dr. Salazar in late 2016. The patient had resolution of her pain after the procedure and the pain has recurred over the past couple of months. The pain is severe with the patient rating it 8 to 9 out of 10, requiring narcotic use and the patient desires surgical management. The patient states the pain is almost completely identical to previous episodes. 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 PAST MEDICAL HISTORY: The patient has a history of Louis's thyroiditis PAST SURGICAL HISTORY: Laparoscopy by Dr. Salazar. ALLERGIES: DENIES. MEDICATIONS: 1. [place] Thyroid. 2. Hydrocodone. 3. Tramadol. SOCIAL HISTORY: Denies tobacco, alcohol, or IV drug abuse. FAMILY HISTORY: Noncontributory. REVIEW OF SYSTEMS: Noncontributory. PHYSICAL EXAMINATION: GENERAL: White female, in mild distress. VITAL SIGNS: 5 foot 10, 325, blood pressure 118/70, pulse 82, respirations 18. HEENT: Within normal limits. LUNGS: Clear to auscultation bilaterally. HEART: Regular rate and rhythm. BREASTS: No masses bilaterally. ABDOMEN: Soft, but is tender in the right lower quadrant. She has mild voluntary guarding. No rebound. No CVA tenderness. PELVIC: Vulva without lesions. Vagina without discharge. Cervix nulliparous. Uterus anteverted, 6 weeks' size. Adnexa; fullness and tenderness localizing to the right adnexa. IMPRESSION: Right lower quadrant chronic pelvic pain, recurrent. PLAN: As the patient's previous drainage of hematosalpinx was successful in resolving her pain, anticipate at removal of right fallopian tube only. However, if endometriosis is found or other pathology of the right axilla, may need to remove the right ovary as well. We will perform surgery with da Gena technique. We will administer appropriate DVT and antibiotic prophylaxis. Job ID: [id number]
[2018-11-29] MEDS ORDERED: Gabapentin 300 MG CAP ONE (10:17)
[2018-11-29] MEDS ORDERED: CEFAZOLIN 2 GM/50 ML BAG ONE (10:17)
[2018-11-29] MEDS ORDERED: CeleCOXIB 100 MG CAP ONE (10:17)
[2018-11-29] MEDS ORDERED: Famotidine/PF 20 mg/2ml Vial ONE (10:17)
[2018-11-29] MEDS ORDERED: Bupivacaine HCl 0.5%/Epinephrine 1:200,000/PF 30 ml Vial ONE (10:49)
[2018-11-29] MEDS ORDERED: Midazolam HCl 2 mg/2 ml Vial ONE (11:02)
[2018-11-29] MEDS ORDERED: Fentanyl 100 MCG/2 ML VIAL ONE ×5 (11:09→14:14)
[2018-11-29] MEDS ORDERED: Promethazine HCl 25 MG/ML VIAL ONE (14:40)
[2018-11-29] MEDS ORDERED: Lidocaine 1% PF 5 ML VIAL ONE (14:58)
[2018-11-29] MEDS ORDERED: PROPOFOL 200 MG/20 ML VIAL ONE (14:58)
[2018-11-29] MEDS ORDERED: Glycopyrrolate 0.2 MG/ML 5 ML SYRINGE ONE (14:58)
[2018-11-29] MEDS ORDERED: Dexamethasone 20 MG/5 ML VIAL ONE (14:58)
[2018-11-29] MEDS ORDERED: Ondansetron PF 4 MG/2 ML Vial ONE (14:58)
--- NOTE | 2018-11-29 17:31 | OP ---
DATE OF PROCEDURE: 11/29/2018 PREOPERATIVE DIAGNOSES: Chronic pelvic pain on the right side with a history of right hydrosalpinx. POSTOPERATIVE DIAGNOSES: Chronic pelvic pain on the right side with a history of right hydrosalpinx, erythematous lesions in the pelvic fossa overlying the uterine vessels and ureter consistent with early endometriosis. PROCEDURE PERFORMED: Laparoscopic right salpingectomy with da Gena. ASSISTING: Yamilet Urbina DO ANESTHESIA: General endotracheal. ESTIMATED BLOOD LOSS: Less than 25 mL. COMPLICATIONS: None. OPERATIVE FINDINGS: 1. Right fallopian tube without obvious hydrosalpinx for pathology. 2. Normal appearing right ovary. 3. Normal appearing left tube and ovary. 4. Thin filmy adhesions of left ovary to pelvic fossa. 5. Erythematous lesions noted in the pelvic fossa overlying the uterine vessels and the ureter on both the right and the left, consistent with endometriosis. 6. No evidence of the uterosacral ligament or cul-de-sac of Sascha or anterior cul-de-sac endometriosis. 7. No evidence of inguinal hernia. DISPOSITION: Recovery room in good condition. SPECIMENS: Right tube. DESCRIPTION OF PROCEDURE: After obtaining appropriate informed consent, the patient was taken to the operating room, where general endotracheal anesthesia was achieved without difficulty. She was prepped and draped in dorsal lithotomy in Sonido stirrups. Sliding speculum was placed in vagina, cervix was identified, grasped with single-tooth tenaculum. Uterus sounded to 8 cm. Hulka manipulator was placed. Hall catheter was placed and the tenaculum and speculum were removed. An dry starch operator changed his gloves, turned attention to abdominal portion of procedure. The patient had a prior 12 mm skin incision at the lower level of the umbilicus. This was then infiltrated with lidocaine with epinephrine and incised. Veress needle was placed inside the abdominal cavity, insufflation carried out with carbon dioxide approximately 15 max pressure, volume approximately 3.5 L. An 8 mm diagnostic scope trocar was placed through the umbilicus and the da Gena 8 mm scope was placed under direct visualization. No evidence of injury to the underlying viscera. The patient was placed in steep Trendelenburg and right and left lateral trocars lateral to the gastric vessels as well as a 12 mm photography assistant port was placed in the right upper quadrant. Fenestrated forceps in the left hand and monopolar scissors in the right. Operative findings were noted. Because of the patient's persistent recurrence of that pain in the exact area, where the hematosalpinx was noted last year, decision was made to go ahead and remove that fallopian tube. It was coagulated at its insertion in the uterus, transected, and then coagulated and transected through the mesosalpinx all the way down to the distal fimbria, which was excised. The tube was removed in its entirety and sent for pathologic analysis. Close inspection of the right ovary revealed no obvious abnormalities or endometriosis. Areas as noted and the operative findings were noted bilaterally. Because of these, the close approximation of these areas to the uterine vessels as well as the ureter, decision was made not to excise. Photo documentation was obtained. The round ligament was inspected and no evidence of an inguinal hernia was noted on either side as well. Good hemostasis was noted on the mesosalpinx. The abdomen was deflated of carbon dioxide after undocking the da Gena and removing the instruments. Trocars were removed. Skin reapproximated x4 using 4-0 Monocryl and Dermabond. Hulka manipulator removed. Hall catheter removed. The patient awakened and extubated to the recovery room in good condition. Job ID: [id number]
== END 2018-11-29 16:36 | disposition home or self-care (01) ==
LOC: SDC 09:20
PROVIDERS: ATTEND Obstetrics & Gynecology
PROC: 0UT54ZZ Resection of Right Fallopian Tube, Percutaneous Endoscopic Approach (ICD-10-PCS; principal; 2018-11-29)
DX: N83.8 Other noninflammatory disorders of ovary, fallopian tube and broad ligament (principal); N73.6 Female pelvic peritoneal adhesions (postinfective); G89.29 Other chronic pain; R10.2 Pelvic and perineal pain; E06.3 Autoimmune thyroiditis; Z79.899 Other long term (current) drug therapy; Z91.018 Allergy to other foods
CPT/HCPCS: 88305; 96374; J0131; J0670; J1100; J2001; J2250; J2405; J2550; J2704; J3010; Q9968; S0028

== ENCOUNTER 2019-09-06 08:56 | Outpatient (CLI) | payer OTHER ==
--- NOTE | 2019-09-06 09:51 | ULT ---
EXAM: OB ultrasound COMPARISON: None HISTORY: female. Evaluate size, dates, and anatomy. TECHNIQUE: Multiplanar grayscale and color Doppler images were obtained in a transabdominal ult rasound. FINDINGS: There is a single live intrauterine with heart rate of 142 bpm. A survey wa s performed which is unremarkable. The head, intracranial structures, heart, stomach, kidneys, umbilical cord, umbilical cord insertion, spine, face, and extremities were evaluated and were unrema rkable. Estimated weight is 300 g. Average age of the fetus based off today's examination is 19 weeks 5 days. BPD 4.49 cm -- 19 weeks 5 days HC 16.91 cm -- 19 weeks 4 days AC 14.12 cm -- 19 weeks 4 days FL 3.11 cm -- 19 weeks 5 days The placenta is posterior/fundal in location without focal abnormality. MAREN is 10.60 cm which is norm al. The cervix is normal in length. There is no evidence of placenta previa. IMPRESSION: Single live intrauterine with estimated age of 19 weeks 5 days.
== END 2019-09-06 08:57 | disposition home or self-care (01) ==
LOC: BICULT 08:56
PROVIDERS: ATTEND Family Medicine
DX: Z34.02 Encounter for supervision of normal first pregnancy, second trimester (principal); Z3A.19 19 weeks gestation of pregnancy
CPT/HCPCS: 76805

== ENCOUNTER 2019-11-29 12:04 | Day surgery (SDC) | payer OTHER ==
[2019-11-29 12:39] VITALS: BMI 36.6
[2019-11-29] MEDS ORDERED: hydrALAZINE 20 MG/ML VIAL SLOW IVP PRN (12:54)
--- NOTE | 2019-11-29 15:08 | PRG ---
DATE OF SERVICE: 11/29/2019 PRESENTING COMPLAINT: Chest heaviness and arm numbness, recurrent at 31 weeks. HISTORY OF PRESENT ILLNESS: Ms. Joaquin is a patient of Dr. Brown. She has an EDC of 01/25, putting her at 31 weeks and 5 days. Antepartum records not available on the unit. She is a G1, P0, who has seen Dr. Bermeo for . She has had progressive frequency of episodes of chest heaviness, global weakness, and arm numbing. She denies syncope, loss of consciousness, change in vision or hearing or taste. She reports no localizing symptoms. She has no prior history of cardiovascular disease. 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 History of right fallopian tube removal. History of infertility. The patient has multiple foster and adopted children. She has had an unremarkable by report. SURGICAL HISTORY: Fallopian tube removal and cholecystectomy. MEDICAL HISTORY: Hypothyroidism, on medications. The patient reports that her labs were recently checked and were within normal limits. ALLERGIES: GLUTEN. MEDICATIONS: vitamins and iron. SOCIAL HISTORY: Denies tobacco, alcohol, or IV drug abuse. FAMILY HISTORY: Noncontributory. REVIEW OF SYSTEMS: Noncontributory. PHYSICAL EXAMINATION: GENERAL: White female, resting comfortably. No acute distress. VITAL SIGNS: Temperature 98.5, pulse 78, respirations 16, blood pressure 104/59. HEENT: Within normal limits. NEUROLOGIC: Brief neurologic exam is nonlocalizing and unremarkable. HEART: Regular rate and rhythm. LUNGS: Clear to auscultation bilaterally. ABDOMEN: Soft, nontender with a fundal height of 32, FHTs 140s. PELVIC: Deferred. EXTREMITIES: No clubbing, cyanosis, or edema. Prolonged monitoring was carried out, which revealed a category 1 heart rate tracing, baseline is 140s to 150s, positive accelerations, no decelerations, no contractions. DIAGNOSTIC STUDIES: A 12-lead EKG was carried out, which revealed a ventricular rate of 76 with normal QRS, QT/QTc ratio, and normal axes. There is a normal sinus rhythm, normal EKG. IMPRESSION: Nonspecific complaints in with no localizing symptoms or findings on exam. No evidence of cardiovascular abnormality such as dilated cardiomyopathy, irregular rhythm, pulmonary embolism, or cerebrovascular accident. Suspect possible mild conversion secondary to anxiety over first in association with multiple life stressors and children under care for a foster in adoptive purposes. PLAN: The patient has echocardiography scheduled for tomorrow with followup with Cardiology and with Dr. Bermeo. Recommended the patient keep these appointments. ER precautions. Job ID: [id number]
== END 2019-11-29 14:38 | disposition home or self-care (01) ==
LOC: L&D/OP 12:04
PROVIDERS: ATTEND Family Medicine
DX: O99.89 Other specified diseases and conditions complicating pregnancy, childbirth and the puerperium (principal); R07.89 Other chest pain; R53.1 Weakness; R20.0 Anesthesia of skin; Z3A.31 31 weeks gestation of pregnancy; Z79.899 Other long term (current) drug therapy; Z90.79 Acquired absence of other genital organ(s)
CPT/HCPCS: 93005; 93010

== ENCOUNTER 2019-11-30 11:56 | Outpatient (CLI) | payer OTHER | END 2019-11-30 11:57 | disposition home or self-care (01) | LOC: ULT 11:56 | PROVIDERS: ATTEND Family Medicine | DX: R00.2 Palpitations (principal); I07.1 Rheumatic tricuspid insufficiency; I37.1 Nonrheumatic pulmonary valve insufficiency | CPT/HCPCS: 93306 ==

== ENCOUNTER 2019-12-03 08:24 | Day surgery (SDC) | payer OTHER ==
[2019-12-03] MEDS ORDERED: hydrALAZINE 20 MG/ML VIAL SLOW IVP PRN (09:45)
--- NOTE | 2019-12-03 09:48 | PDOC.LDHP ---
Labor and Delivery H&P Chief complaint: other (fatigue, chest tightness, shortness of breath) HPI: 34 y/o G1 at 32w2d, patient of Dr. Gail Bermeo, presents with ongoing overwhelming fatigue, chest tightness, shortness of breath, and epigastric discomfort. Denies ctx, VB, LOF, or decreased FM. Had a holter monitor placed today and had an echocardiogram last week but has not received the results. She is scheduled to see Dr. Graham later this month. ROS neg for HEENT, CV, pulm, GI, , neuro, psych, skin, musculoskeletal, or constitutional symptoms other than mentioned above. OB History Details: First Current complications: none Past Medical History: Endometriosis Hypothyroidism, on medication Current medications: pre- vitamins, iron, other (synthroid) Previous surgical history: cholecystectomy, other (salpingectomy for endometriosis) Allergies/Adverse Reactions: Allergies Allergy/AdvReac Type Severity Reaction Status Date / Time gluten Allergy Verified 12/03/19 09:07 Social history: none - Physical Exam Vital signs reviewed and normal: yes General: NAD, resting Lungs: nonlabored breathing Abdomen: gravid FHT: category 1 (150s, mod variability, + accels, no decels) [place] contractions every: none - Assessment 34 y/o G1 at 32w2d with no obstetrical complaints. status reassuring with reactive NST. - Plan -: I discussed the patient's symptoms and history with the patient. She is being seen by cardiology to rule out any cardiac issues that may be contributing to her symptoms. Her O2 saturation while in triage was 96-99% on room air and she appeared fatigued but was not in distress. Normal BPs r/o preeclampsia at this time. Discussed patient with Dr. Bermeo who recommended she be seen in ED to r/ o PE. If negative, could be related to a viral illness and could be further evaluated in Dr. Bermeo's office. D/c from OB triage to be seen in ED to r/o PE.
== END 2019-12-03 09:40 | disposition home or self-care (01) ==
LOC: L&D/OP 08:24
PROVIDERS: ATTEND Family Medicine
DX: O99.89 Other specified diseases and conditions complicating pregnancy, childbirth and the puerperium (principal); R10.13 Epigastric pain; R07.9 Chest pain, unspecified; R06.02 Shortness of breath; R53.83 Other fatigue; O99.283 Endocrine, nutritional and metabolic diseases complicating pregnancy, third trimester; E03.9 Hypothyroidism, unspecified; Z3A.32 32 weeks gestation of pregnancy; Z79.899 Other long term (current) drug therapy; Z91.018 Allergy to other foods
CPT/HCPCS: 36415; 71045; 71275; 80053; 83880; 84484; 85025; 85379; 86308; 93005; 99281

== ENCOUNTER 2019-12-03 09:44 | Emergency (ER) | payer OTHER ==
[2019-12-03 10:50] LABS: #Eosinphils 0.1 thou/uL (0.0-0.7); #Lymphocytes 1.5 thou/uL (1.20-3.40); #Monocytes 0.5 thou/uL (0.11-0.59); #Neutrophils 8.3 thou/uL (1.40-6.50); %Basophils 0.2 % (0.0-1.0); %Eosinophils 0.8 % (0.0-10.0); %Lymphocytes 14.2 % (21.0-51.0); %Monocytes 4.4 % (0.0-10.0); %Neutrophils 80.5 % (42.0-75.0); Mean Corpuscular HGB CONC 34.6 g/dL (32.0-36.0); Mean Corpuscular Volume 95.5 fL (78.0-98.0); Mean Platelet Volume 11.2 fL (7.4-10.4); Platelet Count 154 thou/uL (130-400); RBC Distribution Width 11.7 % (11.5-14.5); Red Blood Cell (RBC) Count 3.63 mill/uL (4.20-5.40); White Blood Cell (WBC) Count 10.2 thou/uL (4.8-10.8)
[2019-12-03 11:21] LABS: ALT (SGPT) 9 U/L (8-55); AST (SGOT) 11 U/L (5-34); Albumin 3.6 g/dL (3.5-5.0); Alkaline Phosphatase 75 U/L (40-110); Anion Gap 12 mmol/L (10-20); BUN (Urea Nitrogen) 4 mg/dL (7.0-18.7); Bilirubin, Total 0.3 mg/dL (0.2-1.2); Calc. Creatinine Clearance 0 mL/min (70-130); Carbon Dioxide 22 mmol/L (22-29); Chloride 104 mmol/L (98-107); Estimated GFR-MDRD Greater than 90; Globulin 3.4 g/dL (2.4-3.5); Glucose 79 mg/dL (70-105); Potassium 3.6 mmol/L (3.5-5.1); Sodium 134 mmol/L (136-145)
--- NOTE | 2019-12-03 11:28 | RAD ---
RADIOGRAPH CHEST 1 VIEW: HISTORY: 34-year-old female with malaise and syncope. Concern for aspiration. FINDINGS: There are no air space densities, pulmonary edema, pneumothorax, or cardiomegaly. The lateral costop hrenic angles are sharp. IMPRESSION: No acute cardiopulmonary findings. jn [] POS: OFF
--- NOTE | 2019-12-03 13:09 | CT ---
CT ANGIOGRAM THORAX WITH IV CONTRAST AND 3-D RECONSTRUCTIONS CLINICAL INDICATION: Shortness of breath, dyspnea on exertion. Fatigue and lightheadedness. COMPARISON: None FINDINGS: Pulmonary arteries: There is suboptimal timing of the contrast bolus which limits evaluation of the p ulmonary arteries, but no obvious filling defect is seen within the central or segmental pulmonary arteries to suggest a pulmonary embolus. Aorta: The aorta is normal in caliber without evidence of an aortic dissection. Lungs: A 6 mm pleural-based plaque is seen along the minor fissure on the right. No additional pulmon cornelia nodule or mass is seen. No pleural effusion is identified. Mediastinum: There is no evidence of lymphadenopathy. Thyroid gland: Artifact is seen secondary to dense contrast in adjacent venous structures, but no def initive thyroid nodule is appreciated. Osseous structures: No acute process. Chest wall: No abnormality visualized. Upper abdomen: Within normal limits for phase of imaging. IMPRESSION: 1. Suboptimal opacification pulmonary arteries, but 8no obvious filling defect is seen within the tod tral or segmental pulmonary arteries to suggest a pulmonary embolus. 2. Pleural-based nodular density along the minor fissure which may represent an intrapleural lymph no de. No consolidation or pleural fluid is seen in the lungs bilaterally.
[2019-12-03 13:20] LABS: MONO NEGATIVE CONTROL ZONE White (Negative) (White); Mononucleosis NEGATIVE (NEGATIVE)
[2019-12-03 13:21] LABS: MONO POSITIVE CONTROL Pink Line (Positive) (PINK/RED)
[2019-12-03] MEDS ORDERED: Iopamidol-370 76% 500 ML 1 ML ONE (15:03)
--- NOTE | 2019-12-08 14:20 | EKG ---
Test Reason : Blood Pressure : / mmHG Vent. Rate : 068 BPM Atrial Rate : 068 BPM P-R Int : 138 ms QRS Dur : 078 ms QT Int : 396 ms P-R-T Axes : 015 035 041 degrees QTc Int : 421 ms Normal sinus rhythm Possible Left atrial enlargement Borderline ECG Confirmed by ANTONIO SHARIF DO ([id number]), science editor PRIYA NUGENT ([id number]) on 12/08/2019 2:20:24 PM Referred By: Confirmed By:ANTONIO SHARIF DO
== END 2019-12-03 13:52 | disposition home or self-care (01) ==
LOC: ERS 09:44
DX: O26.813 Pregnancy related exhaustion and fatigue, third trimester (principal); O99.283 Endocrine, nutritional and metabolic diseases complicating pregnancy, third trimester; E03.9 Hypothyroidism, unspecified; Z3A.32 32 weeks gestation of pregnancy; Z79.899 Other long term (current) drug therapy
CPT/HCPCS: 36415; 71045; 71275; 80053; 83880; 84484; 85025; 85379; 86308; 93005

== ENCOUNTER 2019-12-06 17:04 | Inpatient (IN) | payer OTHER ==
[2019-12-06] MEDS ORDERED: hydrALAZINE 20 MG/ML VIAL SLOW IVP PRN ×3 (17:31→18:16)
[2019-12-06 17:48] VITALS: BMI 36.6
[2019-12-06 17:54] LABS: #Eosinphils 0.1 thou/uL (0.0-0.7); #Lymphocytes 1.9 thou/uL (1.20-3.40); #Monocytes 0.5 thou/uL (0.11-0.59); #Neutrophils 7.9 thou/uL (1.40-6.50); %Basophils 0.3 % (0.0-1.0); %Eosinophils 0.8 % (0.0-10.0); %Lymphocytes 18.1 % (21.0-51.0); %Monocytes 5.2 % (0.0-10.0); %Neutrophils 75.6 % (42.0-75.0); Mean Corpuscular Hemoglobin 32.6 pg (27.0-31.0); Mean Corpuscular Volume 95.7 fL (78.0-98.0); Mean Platelet Volume 11.4 fL (7.4-10.4); Platelet Count 147 thou/uL (130-400); RBC Distribution Width 11.8 % (11.5-14.5); White Blood Cell (WBC) Count 10.4 thou/uL (4.8-10.8)
[2019-12-06 18:14] LABS: ALT (SGPT) 9 U/L (8-55); AST (SGOT) 12 U/L (5-34); Albumin 3.5 g/dL (3.5-5.0); Alkaline Phosphatase 81 U/L (40-110); Anion Gap 13 mmol/L (10-20); BUN (Urea Nitrogen) Less than 4 mg/dL (7.0-18.7); Bilirubin, Total 0.5 mg/dL (0.2-1.2); Calc. Creatinine Clearance 263 mL/min (70-130); Calcium 8.9 mg/dL (7.8-10.44); Carbon Dioxide 21 mmol/L (22-29); Chloride 107 mmol/L (98-107); Estimated GFR-MDRD Greater than 90; Globulin 3.4 g/dL (2.4-3.5); Glucose 75 mg/dL (70-105); Potassium 3.5 mmol/L (3.5-5.1); Protein, Total 6.9 g/dL (6.0-8.3); Sodium 137 mmol/L (136-145); Uric Acid 3.7 mg/dL (2.6-6.0)
[2019-12-06] MEDS ORDERED: Docusate 100 MG CAP PO PRN (18:16)
[2019-12-06] MEDS ORDERED: Ondansetron PF 4 MG/2 ML Vial IVP PRN (18:16)
--- NOTE | 2019-12-06 19:14 | PDOC.HHP ---
Hospitalist HPI - History of Present Illness Fatigue, orthostasis History of Present Illness: NOTE: this is a consulatation note, consuting provider Dr Maldonado, reason for consultation, weakness, dizziness, chest tightness 34 year old female with PMH hypothyroidism, endometriosis who is 32 weeks under care of OBGYN service admitted for progressive fatigue, chest tightness, epigastric discomfort, global weakness. No history of syncope, seizure, focal weakness, no facial droop. No history of cardiovascular or neurologic disease. She recorded BP and HR at home and noted was HR 60 and BP 90/40 when lying and when she sat up became 130s SBP and HR in 120s. Patient has been dizzy and holding on to urbina. She was admitted to OBGYN service for PE rule out and endocrine workup, here CTA chest performed to rule out PE, did not show any filling defects consistent with PE but did reveal small intrapleural nodule possibly LN. CXR without acute findings. TTE performed revealing EF 55-60%, normal diastolic function, trace MR, mild TR/PA. Patient had holter monitor placed. She saw Dr Conte of endocrinology as outpatient today who recommended cosyntropin test and then to start hydrocortisone and fludrocortisone at doses provided in notes in chart. She has hypothyroidism, managed as outpatient by endocrinology and takes synthroid with no recent dose changes. Patient was to see Dr Pierce soon as outpatient. EKG performed as outpatient with NSR but with inferior lead TWI which were new confirmed by Dr Pierce. Initial labs w/ Hgb 12, plt 147, WBC 10.4, BMP normal except CO2 21. Hospitalist ROS - Review of Systems Constitutional: reports: weakness, malaise. denies: fever, chills Eyes: denies: vision change, redness ENT: denies: throat pain, throat swelling Respiratory: reports: shortness of breath. denies: cough, dry Cardiovascular: reports: palpitations, light headedness Gastrointestinal: reports: nausea, abdominal pain. denies: vomiting Musculoskeletal: denies: neck pain, shoulder pain Skin: denies: rash, lesions Neurological: reports: weakness, numbness Other: nonfocal weakness and dizziness and orthostasis All other systems reviewed; all pertinent +/- noted in HPI/Subj Hospitalist History - Past Medical History Other Medical History: endometriosis hypothyroidism - Past Surgical History Other Surgical History: cholecystectomy - Family History Family History: reports: no pertinent history - Social History Smoking Status: Never smoker Alcohol: reports: None Drugs: reports: none - Exam General Appearance: NAD, awake alert Eye: PERRL, anicteric sclera ENT: normocephalic atraumatic, no oropharyngeal lesions, moist mucosa Neck: supple, symmetric, no JVD, no thyromegaly, no lymphadenopathy, no carotid bruit Heart: RRR, no murmur, no gallops, no rubs, normal peripheral pulses Respiratory: CTAB, no wheezes, no rales, no ronchi, normal chest expansion, no tachypnea, normal percussion Gastrointestinal: soft, non-tender, non-distended, normal bowel sounds, no palpable masses, no hepatomegaly, no splenomegaly, no bruit Gastrointestinal - other findings: gravid Extremities: no cyanosis, no clubbing, no edema Skin: normal turgor, no lesions, no rashes Neurological: cranial nerve grossly intact, normal sensation to touch, no weakness, no focal deficits, no new deficit Musculoskeletal: normal tone, normal strength, no muscle wasting Psychiatric: normal affect, normal behavior, A&O x 3 Hospitalist Results - Labs Result Diagrams: 12/06/19 17:45 12/06/19 17:45 Lab results: WBC 10.4 thou/uL (4.8-10.8) 12/06/19 17:45 Hgb 12.0 g/dL (12.0-16.0) 12/06/19 17:45 Hct 35.4 % (36.0-47.0) L 12/06/19 17:45 MCV 95.7 fL (78.0-98.0) 12/06/19 17:45 Plt Count 147 thou/uL (130-400) 12/06/19 17:45 Neutrophils % 75.6 % (42.0-75.0) H 12/06/19 17:45 Sodium 137 mmol/L (136-145) 12/06/19 17:45 Potassium 3.5 mmol/L (3.5-5.1) 12/06/19 17:45 Chloride 107 mmol/L (98-107) 12/06/19 17:45 Carbon Dioxide 21 mmol/L (22-29) L 12/06/19 17:45 BUN Less than 4 mg/dL (7.0-18.7) L 12/06/19 17:45 Creatinine 0.56 mg/dL (0.6-1.1) L 12/06/19 17:45 Glucose 75 mg/dL (70-105) 12/06/19 17:45 Calcium 8.9 mg/dL (7.8-10.44) 12/06/19 17:45 Total Bilirubin 0.5 mg/dL (0.2-1.2) 12/06/19 17:45 AST 12 U/L (5-34) 12/06/19 17:45 ALT 9 U/L (8-55) 12/06/19 17:45 Alkaline Phosphatase 81 U/L (40-110) 12/06/19 17:45 Serum Total Protein 6.9 g/dL (6.0-8.3) 12/06/19 17:45 Albumin 3.5 g/dL (3.5-5.0) 12/06/19 17:45 Additional comment: see HPI. vitals reviewed t 98.6 pulse 68 RR 16 O2 sat 100 on RA BP 106/61 - EKG Interpretation EKG: see HPI Hospitalist H&P A/P - Plan Plan: 34 year old female with PMH hypothyroidism, endometriosis who is 32 weeks under care of OBGYN service admitted for progressive fatigue, chest tightness, epigastric discomfort, global weakness. IM consulted for the above. # progressive fatigue, chest tightness, epigastric discomfort, global weakness - orthostasis recorded at home with large increase in positional HR on sitting. symptoms are vague, has now had CT-PE with no PE, had echo without explanation of symptoms, holter monitor in place, patient admitted by Dr Conte of endocrinology for workup as instructed in writing in chart, orders placed as able. - baseline cortisol 8.7, follow up cosyntropin stim test - follow up all other ordered labs as requested by Dr Conte and ordered, can discuss results with him once available (could not find order "adrenal antibodies" may want to clarify with him in AM or defer to outpatient). - orthostatic vitals, troponin x 1 - consult Dr Pierce since patient not going to see for a few more weeks as outpatient, echo and EKG in chart reviewed, has holter - start empiric fludrocortisone and hydrocortisone as instructed by endocrinology # alyssa thyroiditis - reportedly outpatinet thyroid labs OK on Nov 27. - resume home synthroid # intrauterine - 32 weeks, defer to OBGYN primary team Thank you for the consult, we will continue to follow daily
--- NOTE | 2019-12-06 19:56 | HP ---
PRIMARY OB: Dr. Gail Bermeo MD CHIEF COMPLAINT: Fatigue, presyncopal episodes and tachycardia. HISTORY OF PRESENT ILLNESS: The patient is a 34-year-old G1, P0 female with an intrauterine at 32 weeks and 5 days, who has been sent by an geotechnician today to the emergency room after his initial evaluation for concerns of adrenal insufficiency. The patient has been experiencing for the last 6 weeks, progressively worsening episodes of dizziness, weakness, extreme fatigue, tachycardia seems to be effect associated with postural changes. Her geotechnician after his initial evaluation sent to the emergency room with instructions for her to get an a.m. cortisol at 8:00 a.m. Ideally, a cosyntropin stimulation test, labs for adrenal antibodies, aldosterone and renin, CMP, CBC with instructions of hydrocortisone 20 mg in the morning and 10 mg at 5:00 p.m. and fludrocortisone 0.1 mg daily. The patient reports that she had an illness about 2 weeks ago and since then her symptoms just have not gotten better and have changed from being episodic to more persistent. The patient denies any uterine contractions, vaginal bleeding, or leakage of fluid. She denies headache, chest pain, or shortness of breath. She has nausea, no vomiting, no diarrhea, and reports some constipation. Denies any new rashes, hip problems, knee problems, muscle weakness. Denies vaginal bleeding, leakage of fluid, urinary urgency or frequency. The patient has been seen in the emergency room about 3 times in the last week or so. Her various workups have included CT angiogram to rule out PE. Echocardiogram to rule out cardiomyopathy, both of which have come back normal. She has had a screen for mononucleosis, which came back negative. Her thyroid was tested on the and found to be within normal limits. Her BNP is within normal limits. Negative troponins. Negative LFTs. Calcium is 8.9, creatinine 0.56, potassium 3.5, and sodium is 137. PAST MEDICAL HISTORY: Significant for hypothyroidism and endometriosis. PAST SURGICAL HISTORY: Cholecystectomy, salpingectomy for endometriosis. ALLERGIES: GLUTEN. MEDICATIONS: She is on; 1. Levothyroxine 100 mcg. 2. vitamins. 3. Iron. SOCIAL HISTORY: Denies drug, alcohol, or tobacco use. OB LABS: 1 hour Glucola is 125. Hepatitis B surface antigen is negative. HIV antibody is negative. She is rubella immune. RPR is negative. Type and screen, she is A positive with a negative antibody screen. REVIEW OF SYSTEMS: Per HPI. PHYSICAL EXAMINATION: VITAL SIGNS: Here, initial blood pressure 111/66, heart rate of 90, respiratory rate of 18, saturating 98% on room air, and temperature 98.2. Pulse ross to 120 up to sitting and by the time she is standing pulse would come back down to 109. GENERAL: She appears to be somewhat fatigued, but she is in good spirits that she is alert, oriented, cooperative, and pleasant to interact with. HEAD: Normocephalic and atraumatic. LUNGS: Clear to auscultation bilaterally. HEART: Regular rate and rhythm. ABDOMEN: Gravid, soft, and nontender. EXTREMITIES: Nontender and nonedematous. DIAGNOSTIC DATA: heart tracing shows the fetus with a baseline in the 140s with moderate long-term variability positive 15 x 15 accelerations, no decelerations. Tocometer is free of contractions. LABORATORY DATA: Today, white count is 10.4, hemoglobin 12.0, hematocrit 35.4, and platelets of 147,000. CMP shows the sodium of 137, potassium of 3.5, chloride of 107, creatinine of 0.56, glucose is 75, uric acid 3.7, calcium of 8.9, AST of 12, and ALT of 9. ASSESSMENT AND PLAN: The patient is a 34-year-old female with a 6-week history of progressive symptoms of fatigue, intermittent at first, has now become persistent with episodes of tachycardia, fatigue, dizziness. Her Endocrinology visit has sent her here for evaluation for adrenal insufficiency. I have ordered a CMP and CBC. We will order adrenal antibodies, aldosterone and renin, per doctor Conte instructions and requesting an a.m. cortisol, cosyntropin stimulation test, and start her on hydrocortisone 20 mg in the morning, 10 mg at 5:00 p.m. and fludrocortisone 0.1 mg daily. I will hold off her steroids until she has her cosyntropin stimulation test. I have consulted Medicine to assist with evaluation of this condition. Fetus has a category 1 tracing reactive NST. The patient will be admitted to the peds floor for further evaluation and workup. I have spoken to Dr. Encarnacion, who will be passing on this consult to the night person as they were about to change shifts. I have also updated Dr. Gail Bermeo, who has access to maintain management of the patient as she will be leaving town this weekend. Job ID: [id number]
[2019-12-06 20:11] LABS: Bacteria/HPF 4+ HPF (None Seen); Bilirubin Negative (Negative); Blood, Urine Negative (Negative); Clarity Clear (Clear); Glucose, Urine (Dipstick) Normal (Negative); Leukocyte 75 Leu/uL (Negative); Nitrite Negative (Negative); Protein, Urine (Dipstick) Negative (Neg-Trace); RBC/HPF 0-3 HPF (0-3); Squamous Epithelial 0-3 HPF (0-3); Urobilinogen Normal mg/dL (Less than 2)
[2019-12-06 20:15] LABS: Amphetamine Not Detected (NotDetected); Barbiturates Screen Not Detected (NotDetected); Benzodiazepine Screen Not Detected (NotDetected); Cocaine Metabolite Screen Not Detected (NotDetected); Medtox Control Line Valid? VALID (VALID); Medtox Reader # READER 4; Methadone Not Detected (NotDetected); Methamphetamine Not Detected (NotDetected); Opiate Screen Not Detected (NotDetected); Oxycodone Screen Not Detected (NotDetected); Phencyclidine (PCP) Not Detected (NotDetected); THC/Cannabinoid Screen Not Detected (NotDetected); Tricyclic Screen Not Detected (NotDetected)
[2019-12-06] MEDS ORDERED: Cosyntropin 250 MCG VIAL SLOW IVP SCH (20:30)
[2019-12-06 22:26] LABS: ALT (SGPT) 9 U/L (8-55); AST (SGOT) 9 U/L (5-34); Albumin 3.3 g/dL (3.5-5.0); Alkaline Phosphatase 74 U/L (40-110); Anion Gap 12 mmol/L (10-20); BUN (Urea Nitrogen) Less than 4 mg/dL (7.0-18.7); Bilirubin, Total 0.4 mg/dL (0.2-1.2); Calc. Creatinine Clearance 278 mL/min (70-130); Calcium 8.5 mg/dL (7.8-10.44); Carbon Dioxide 21 mmol/L (22-29); Chloride 106 mmol/L (98-107); Estimated GFR-MDRD Greater than 90; Glucose 100 mg/dL (70-105); Potassium 3.2 mmol/L (3.5-5.1); Protein, Total 6.3 g/dL (6.0-8.3); Sodium 136 mmol/L (136-145)
[2019-12-06 22:28] LABS: #Eosinphils 0.1 thou/uL (0.0-0.7); #Lymphocytes 1.8 thou/uL (1.20-3.40); #Monocytes 0.6 thou/uL (0.11-0.59); #Neutrophils 7.7 thou/uL (1.40-6.50); %Basophils 0.4 % (0.0-1.0); %Eosinophils 0.6 % (0.0-10.0); %Monocytes 5.8 % (0.0-10.0); %Neutrophils 75.3 % (42.0-75.0); Hemoglobin 10.8 g/dL (12.0-16.0); Large Platelets SLIGHT; MDiff Complete? YES; Mean Corpuscular Volume 94.1 fL (78.0-98.0); Platelet Count 141 thou/uL (130-400); Platelet Morphology Comment Appears Adequate; RBC Distribution Width 11.6 % (11.5-14.5); Red Blood Cell (RBC) Count 3.37 mill/uL (4.20-5.40); White Blood Cell (WBC) Count 10.3 thou/uL (4.8-10.8)
[2019-12-06] MEDS ORDERED: Hydrocortisone 10 mg Tablet PO SCH (23:15)
[2019-12-07] MEDS: cefTRIAXone\\ROCEPHIN 1 GM in Sodium Chloride 0.9% 100 ML IVPB SCH (04:37)
[2019-12-07] MEDS: Levothyroxine Sodium 100 MCG TAB PO SCH (05:51)
[2019-12-07] MEDS ORDERED: Magnesium Citrate 300 ML BOT PO SCH (07:45)
--- NOTE | 2019-12-07 08:10 | PRG ---
DATE OF SERVICE: 12/07/2019 SUBJECTIVE: The patient is a 34-year-old female here with an intrauterine at 32 weeks and 6 days, who presented yesterday via ambulance from Dr. Conte office, an pourer bull ladle for concerns of adrenal insufficiency. The patient was admitted to the hospital for evaluation and the hospitalist team, Hema was consulted. Overnight, update has been that the cosyntropin test was negative with an appropriate response. There is 800 of cortisol pending this morning. Cardiology has been consulted by Hema for further evaluation. The patient reports nausea this morning and otherwise, no other significant symptoms. The patient does report history of constipation and has not been to the bathroom in a few days. She does report that she has been on iron and that she has been having problems with this since a few weeks after starting to take it. OBJECTIVE: VITAL SIGNS: Blood pressure this morning 111/59, heart rate of 63, temperature 97.8, respiratory rate of 18, and saturating 99% on room air. GENERAL: She appears to be in no acute distress. She is alert and oriented, cooperative and pleasant to interact with. ASSESSMENT AND PLAN: The patient is a 34-year-old female with excessive and prolonged weakness and fatigue, nausea and episodic tachycardia, admitted to the hospital under recommendation of her pourer bull ladle, Dr. Conte for evaluation of adrenal insufficiency. Hema will be managing most of this workup and has consulted Cardiology. We will continue NST every shift during this morning. The patient is on levothyroxine 100 mcg daily for hypothyroidism and I have ordered magnesium citrate to assist with cleaning out her bowels. She was also started on Rocephin earlier this morning with findings of 4+ bacteria in her urine. Dr. Mojica is the oncoming SERVICE DELIVERY DIRECTOR hospitalist that will be assuming care. Job ID: [id number]
[2019-12-07] MEDS ORDERED: Fludrocortisone Acetate 0.1 MG TAB PO SCH (09:00)
[2019-12-07] MEDS ORDERED: Hydrocortisone 10 mg Tablet PO SCH ×2 (09:00→17:00)
--- NOTE | 2019-12-07 14:54 | PDOC.HOSPP ---
- Subjective Encounter Date: 12/07/19 Encounter Time: 09:30 Subjective: pt up in bed appears ill and tired. she states " i feel like i ran a marathon". - Objective Vital Signs & Weight: Vital Signs (12 hours) Temp Pulse Resp BP BP Pulse Ox 12/07/19 11:55 98.6 F 75 20 111/57 L 98 12/07/19 08:26 97.8 F 72 16 106/57 L 97 12/07/19 04:39 97.8 F 63 18 111/59 L 99 Weight Weight 255 lb I&O: 12/06/19 12/07/19 12/08/19 06:59 06:59 06:59 Intake Total 345 Balance 345 Result Diagrams: 12/06/19 21:54 12/06/19 21:54 Hospitalist ROS - Review of Systems Cardiovascular: denies: chest pain, palpitations, orthopnea, paroxysmal noc. dyspnea, edema, light headedness, other Gastrointestinal: reports: nausea. denies: vomiting, abdominal pain, diarrhea, constipation, melena, hematochezia, other Neurological: reports: weakness - Medication Medications: Active Medications Generic Name Dose Route Start Last Admin Trade Name Freq PRN Reason Stop Dose Admin Cosyntropin 250 mcg 12/06/19 20:30 12/06/19 21:20 Cortrosyn SLOW IVP 250 mcg WILLCALL NATE Administration Ceftriaxone Sodium 1 gm/ 100 mls @ 200 mls/hr 12/07/19 03:00 12/07/19 04:37 Sodium Chloride IVPB 100 mls 0300 NATE Administration Levothyroxine Sodium 100 mcg 12/07/19 06:00 12/07/19 05:51 Synthroid PO Not Given 0600 NATE - Exam Neck: negative: supple, symmetric, no JVD, no thyromegaly, no lymphadenopathy, no carotid bruit, JVD Heart: negative: RRR, no murmur, no gallops, no rubs, normal peripheral pulses, irregular, diminshed peripheral pulses, murmur present, II/IV, III/IV Respiratory: negative: CTAB, no wheezes, no rales, no ronchi, normal chest expansion, no tachypnea, normal percussion, rales, rhonchi, tachypneic, wheezes Hosp A/P (1) Generalized weakness Code(s): R53.1 - WEAKNESS Status: Acute (2) Status: Acute (3) Hypothyroidism Code(s): E03.9 - HYPOTHYROIDISM, UNSPECIFIED Status: Acute (4) UTI (urinary tract infection) Status: Acute - Plan pt's cosyntropin test was normal. spoke with Dr Conte. will stop steroids. will transfer pt to tele. cardio consult pending. tsh normal. will continue abx for uti.
[2019-12-07] MEDS: Dextrose 5 % And 0.9 % NaCl 1,000 ML IV SCH (15:23)
[2019-12-07] MEDS ORDERED: Potassium Chloride 20 MEQ TAB PO SCH (20:00)
--- NOTE | 2019-12-08 01:06 | CON ---
DATE OF CONSULTATION: PRIMARY OB: Gail Bermeo MD. PRIMARY INTERIOR DESIGN TEACHER: Francisca Luz MD. REASON FOR CARDIOLOGY CONSULT: Palpitation and chest tightness. HISTORY OF PRESENT ILLNESS: Ms. Joaquin is a 34-year-old G1, P0 female with 32 weeks and 5 days , who has been admitted in the hospital for several times for complaint of palpitation, chest tightness, tachycardia, and worsening of fatigue. The patient had a chest and thoracic CTA to make sure the patient does not have any dissection on 12/03/2019, which shows within normal limits imaging. The patient had an echocardiogram done on 11/30/2019 with EF of 55% to 60%, trace mitral valve regurgitation, otherwise normal echocardiogram result. The patient had a Holter monitor the past weekend of last week for complaint of palpitation, which showed the patient's heart rate was going up to 130 twice; however, the patient's heart rate has been stable. The patient was complaining of heart rates going up to 110 to 120s with movement every time the patient moves. Today, while the patient was getting up to the bathroom, the patient's heart rate has been monitored on the telemetry. The patient's heart rate was going up to 120 once for few seconds and coming down to 80s to 90s after the episode. With movement, the patient's heart rate went up to 110s most afterwards, however, lasted for a few seconds and went down to 70s to 80s. However, the patient continued having chest tightness, dizziness, lightheadedness, although the patient's blood pressure systolic was 110s and heart rate has been 70s to 80s. The patient's stat 12-lead EKGs showed to be normal without any ST-segment change or T-wave inversion at that time. The patient's EKG was also reviewed by Dr. Luz. The patient's O2 sat was 97 to 98 when patient was complaining of shortness of breath. According to report per the patient's physiological chemist who reviewed the patient's lab results, which were showing a normal range. The patient was found to have UTI during this admission. PAST MEDICAL HISTORY: Hypertension and endometriosis. PAST SURGICAL HISTORY: Cholecystectomy, salpingectomy, and endometriosis. SOCIAL HISTORY: She is . This is her first . She is living with her , and her mother is coming in day time to stay with her. The patient denies ETOH, tobacco, or illicit drug abuse. Prior to this event, the patient has been very active, taking care of her 3 adopted children at home. ALLERGIES: SHE IS ALLERGIC TO GLUTEN. HOME MEDICATIONS: 1. Levothyroxine 100 mcg. 2. vitamin. 3. Iron. REVIEW OF SYSTEMS: A 12-point review of systems negative unless otherwise mentioned in the HPI. PHYSICAL EXAMINATION: VITAL SIGNS: Blood pressure is 115/60 with standing, sitting 118/60, 109/63 in supine position, heart rate 70s to 80s sinus rhythm, respiratory rate 18, O2 saturation 97% on room air, and temperature 98.5. GENERAL: The patient is alert and oriented x4, not in acute distress when she is not moving. HEENT: Normocephalic, atraumatic. Eyes; extraocular muscle movement intact. ENT and mouth, oral and nasal mucosa moist without lesions. NECK: Supple. Normal range of motion. No JVD. RESPIRATORY: Clear to auscultate bilaterally. No wheezing or rales or rhonchi noted. CARDIOVASCULAR: Regular rate and rhythm. Normal S1, S2. No S3 or S4. No significant murmur, hives, or thrill noted. 2+ pulses in bilateral upper and lower extremities. No edema in the lower extremities. Carotid pulses are present without bruit or thrill. MUSCULOSKELETAL: The patient is able to move all extremities. The patient denied claudication in the lower extremities. SKIN: Warm and dry. No rash, erythema, or lesion noted. NEUROLOGIC: The patient is alert and oriented x4. Motor nonfocal. PSYCHIATRIC: The patient's mood is appropriate. LABORATORY DATA: WBC 10.3, hemoglobin 10.8, and platelet 141. Sodium 136, potassium 3.2, BUN less than 4, creatinine is 0.53, glucose 100, uric acid is 3.7, calcium is 8.5. AST 9, ALT 9, alkaline phosphatase 74, albumin 6.3. TSH 0.7031. Cortisol 9.3. UA showed the patient to have UTI. ASSESSMENT AND PLAN: 1. Palpitation with tachycardia, chest tightness. The patient's EKG has been showing as normal without ST-segment changes or T-wave inversion. The patient's heart rate did jump up to 120s once for few seconds and coming down to 80s to 90s right after the event. Blood pressure is stable and the patient's orthostatic blood pressure is stable also. The patient was mentioned about postural orthostatic tachycardia syndrome. However, the patient's blood pressure elevates when the patient stands up instead of going down. CTA thoracic shows no sign of dissection. At this moment, we would like to continue normal saline at 75 mL an hour and recommend to increase the sodium intake. 2. Hypothyroidism. The patient's TSH is stable at this moment. The patient is on levothyroxine 100 mcg once a day. 3. Urinary tract infection, which is managed by primary care doctor. She is on Rocephin right now. 4. Hypokalemia. The patient's potassium level today is 3.2. Since the patient is complaining of palpitation and tachycardia, the patient is going to receive potassium 40 mEq once a day one time dose tonight. Thank you very much for Cardiology Service to participate in the care of this patient. We will follow along the patient's care team and make further recommendations as appropriate. Job ID: [id number]
[2019-12-08] MEDS: cefTRIAXone\\ROCEPHIN 1 GM in Sodium Chloride 0.9% 100 ML IVPB SCH (06:08)
[2019-12-08] MEDS: Levothyroxine Sodium 100 MCG TAB PO SCH (06:09)
[2019-12-08] MEDS: Dextrose 5 % And 0.9 % NaCl 1,000 ML IV SCH ×2 (06:09→18:48)
--- NOTE | 2019-12-08 07:19 | PDOC.BPN ---
- Brief Progress Note S: Patient reports symptoms are still occurring with movement but she feels okay during rest. Denies vaginal bleeding, leaking fluid, or contractions. She is feeling good movement. O: AFVSS Gen - AAO, NAD Abd - gravid, NTTP NST 12/07 pm reviewed and reactive. NST 12/08 am pending. A/P: 34 y/o G1 at 33w0d with fatigue and weakness. No OB complaints at this time. Continue NST q shift. Plan otherwise per Sound Hospitalist and Consultation recommendations, which are greatly appreciated.
--- NOTE | 2019-12-08 14:36 | PDOC.EVN ---
Event Note - Event Note Event Note: OBGYN district extension service agent Patient seen at bedside at 1430. See Dictation. May need outpatient MFM eval/input LEXIS to guide further care.
--- NOTE | 2019-12-08 15:00 | PRG ---
DATE OF SERVICE: 12/08/2019 SEA CAPTAIN on-call note. The patient's location, is in bed 255. In brief, I was asked by the patient's nurse, to talk with the patient at her request (the patient's request) as the patient was asking whether induction of labor would be an option for her. The patient is currently at 33 weeks and 0 days, and is being evaluated by Cardiology for lethargy/fatigue NOS. The patient has been seen by Cardiology with no specific diagnosis resulting. According to the consultation in the EMR, and based on the patient's history, the patient has hypothyroidism on 100 mcg, but this does not seem to be the issue. The patient's TSH was stable at evaluation. Per the consultation note that I am reviewing, one of the assessments is palpitations and tachycardia with "chest tightness." The patient's EKG has been showing normal without specific pathological abnormalities. The patient's heart rate did jump up to 120s for a few seconds, but it came back down to the 80s to 90s per the consult report. She also had a CTA of the chest, which showed no signs of dissection. The patient does have a history of UTI, which is being treated. It looks like as of now, there is no specific Cardiology recommendation at this time. The patient asked about induction of labor as a possible therapeutic intervention. I did discuss with them that pre-term induction required a true medical diagnosis and while induction of labor is not unreasonable, it is unlikely at this point since we do not have a true medical diagnosis. Also, at an EGA of 33 weeks and 0 day, risk of prematurity maybe greater than the benefit to the mother. However, I did recommend that potentially she could have Maternal- Medicine evaluation as an outpatient to determine the best course of action and/or have them determine if induction of labor is required. I did discuss with them that induction of labor, if deemed appropriate, could be done at 37 weeks, to at least be early term. I also discussed the potential morbidity of bed rest with an increased risk of venous thrombosis and/or further deconditioning. The patient did ask about Neurology; however, her previous evaluations have not revealed a focal neurological defect. We are awaiting for PT assessment this weekend, and if PT notices a potential neurological problem, it is something to consider. The patient also had a cosyntropin test recently. At this time, the etiology of the patient's palpitations/fatigue/debilitating condition is not clear. We may need Maternal- Medicine's input at this time to guide further therapy/decision making. While induction of labor is a consideration, I would prefer to have Maternal- Medicine's input to direct that as a that is done iatrogenically should have MFM evaluation without a true overt current diagnosis. Job ID: [id number]
--- NOTE | 2019-12-08 15:49 | PDOC.HOSPP ---
- Subjective Encounter Date: 12/08/19 Encounter Time: 08:45 Subjective: pt up in bed awake feels a bit tired. - Objective Vital Signs & Weight: Vital Signs (12 hours) Temp Pulse Resp BP Pulse Ox 12/08/19 12:00 97.8 F 77 16 100/58 L 12/08/19 07:25 98.1 F 76 16 97/53 L 98 Weight Weight 255 lb I&O: 12/07/19 12/08/19 12/09/19 06:59 06:59 06:59 Intake Total 345 360 Balance 345 360 Result Diagrams: 12/06/19 21:54 12/06/19 21:54 Hospitalist ROS - Review of Systems Cardiovascular: denies: chest pain, palpitations, orthopnea, paroxysmal noc. dyspnea, edema, light headedness, other Gastrointestinal: denies: nausea, vomiting, abdominal pain, diarrhea, constipation, melena, hematochezia, other Genitourinary: denies: dysuria, frequency, incontinence, hematuria, retention, other - Medication Medications: Active Medications Generic Name Dose Route Start Last Admin Trade Name Freq PRN Reason Stop Dose Admin Cosyntropin 250 mcg 12/06/19 20:30 12/06/19 21:20 Cortrosyn SLOW IVP 250 mcg WILLCALL NATE Administration Ceftriaxone Sodium 1 gm/ 100 mls @ 200 mls/hr 12/07/19 03:00 12/08/19 06:08 Sodium Chloride IVPB 100 mls 0300 NATE Administration Dextrose/Sodium Chloride 1,000 mls @ 75 mls/hr 12/07/19 15:00 12/08/19 06:09 D5 0.9% Ns IV 1,000 mls .[id number] NATE Administration Levothyroxine Sodium 100 mcg 12/07/19 06:00 12/08/19 06:09 Synthroid PO 100 mcg 0600 NATE Administration - Exam Heart: negative: RRR, no murmur, no gallops, no rubs, normal peripheral pulses, irregular, diminshed peripheral pulses, murmur present, II/IV, III/IV Respiratory: negative: CTAB, no wheezes, no rales, no ronchi, normal chest expansion, no tachypnea, normal percussion, rales, rhonchi, tachypneic, wheezes Gastrointestinal: negative: soft, non-tender, non-distended, normal bowel sounds , no palpable masses, no hepatomegaly, no splenomegaly, no bruit, no guarding, no rigidity, tender to palpation, distended, diminished bowl sounds, voluntary guarding Extremities: negative: no cyanosis, no clubbing, no edema, 1+ LE edema, 2+ LE edema, clubbing Hosp A/P (1) Generalized weakness Code(s): R53.1 - WEAKNESS Status: Acute (2) Status: Acute (3) Hypothyroidism Code(s): E03.9 - HYPOTHYROIDISM, UNSPECIFIED Status: Acute (4) UTI (urinary tract infection) Status: Acute - Plan pt's cosyntropin test was normal. spoke with Dr Conte. will stop steroids. will transfer pt to tele. cardio consult pending. tsh normal. will continue abx for uti. 12/08 Her urine cx indicated mix skin and enteric lenore. will ambulate pt to see if her HR worsens. family very supportive of pt. Cardio did not indicate any acute processes. ekg normal, she was tachycardia only for a few sec.
[2019-12-08 16:00] VITALS: TEMP 98
[2019-12-08 16:28] VITALS: BP 101/58
--- NOTE | 2019-12-08 17:53 | PDOC.EVN ---
Event Note - Event Note Event Note: This PM NST is reactive, no evidence of PTL. OK for DC as per primary team as I reviewed with the patient's RN and Mariajose, our L&D RN. Recommend MFM input as outpatient as they are not at this hospital. MFM should eval this next coming week. MFM to be arranged per Dr Raman after her return and as patient contacts her. No current OBGYN input/indication for intervention at this time.
--- NOTE | 2019-12-08 17:59 | PDOC.CPN ---
- Subjective Date: 12/08/19 Time: 18:04 Interval history: The pt seen and examined. No overnight events. The pt cont. having palpitation , chest tightness, and chronic fatigue especially after movement - Objective Allergies/Adverse Reactions: Allergies Allergy/AdvReac Type Severity Reaction Status Date / Time gluten Allergy Verified 12/06/19 17:49 Visit Medications: Current Medications Cosyntropin (Cortrosyn) 250 mcg SLOW IVP WILLCALL [facility] Last Admin: 12/06/19 21:20 Dose: 250 mcg Docusate Sodium (Colace) 100 mg PO BIDPRN PRN PRN Reason: Constipation Ceftriaxone Sodium 1 gm/ (Sodium Chloride) 100 mls @ 200 mls/hr IVPB 0300 [facility] Last Admin: 12/08/19 06:08 Dose: 100 mls Dextrose/Sodium Chloride (D5 0.9% Ns) 1,000 mls @ 75 mls/hr IV .[id number] [facility] Last Admin: 12/08/19 06:09 Dose: 1,000 mls Levothyroxine Sodium (Synthroid) 100 mcg PO 0600 [facility] Last Admin: 12/08/19 06:09 Dose: 100 mcg Ondansetron HCl (Zofran) 4 mg IVP Q6H PRN PRN Reason: Nausea/Vomiting Sodium Chloride (Flush - Normal Saline) 10 ml IVF PRN PRN PRN Reason: Saline Flush Vital Signs & Weight: Vital Signs Temp Pulse Resp BP BP BP Pulse Ox 12/08/19 16:26 101/58 L 114/55 L 119/63 12/08/19 15:30 98.0 F 78 16 94/50 L 98 12/08/19 12:00 97.8 F 77 16 100/58 L 12/08/19 07:25 98.1 F 76 16 97/53 L 98 Weight 255 lb - Physical Exam General: alert & oriented x3 Cardiac: regular rate and rhythm, S1/S2 Lungs: clear to auscultation Extremities: no edema - Labs Result Diagrams: 12/06/19 21:54 12/06/19 21:54 Troponin/CKMB Troponin I Less than 0.010 ng/mL (< 0.028) 12/07/19 19:15 - Telemetry Sinus rhythms and dysrhythmias: sinus rhythm - Assessment/Plan Assessment/Plan: 1. Palpitation/Tachycardia - unknown etiology; possible Maternal- Medicine consult per OBGYN 2. Hypothyroidism 3. UTI MAR reviewed * Echo on 11/30/2019 with EF 55-60%, trace MR. * EVR showed HR up to 130s for a few sec, otherwise, no arrhythmia or pauses.
--- NOTE | 2019-12-11 08:52 | CON ---
DATE OF CONSULTATION: 12/07/2019 INDICATION FOR CONSULTATION: A 34-year-old female who is 32 weeks , who has been having orthostatic hypotension with dizziness, lightheadedness, and also some mild tachycardia with presyncopal episodes. We were asked to see her due to mild tachycardia. She did undergo a recent monitor, a 48-hour monitor, which showed a minimum heart rate of 53 beats per minute, average heart rate was 80, maximum heart rate was 139 beats per minute. She only had some rare occasional supraventricular beats, otherwise she had rare PACs. Otherwise, was uneventful monitor. She presented to the emergency room after feeling that she was going to pass out. She has been admitted. She may have some degree of POTS syndrome. However, with this diagnosis, the heart rate should increase by 30 beats per minute in the standing position. This has not been demonstrated at this time. She does say, however, that she has a heart rate which has been in the 50s at times. Most of the time, normal heart rates were in the 50s but this time, her heart rate is mainly in the 70s and 80s. She does not really meet all of the requirements for the diagnosis of POTS disease or POTS syndrome. However, due to her , she may be having some venous return causing some of her symptoms. Hopefully, the symptoms will resolve after her delivery. Otherwise, we agree with starting this patient if necessary on fludrocortisone 0.1 mg a day. There has also been some investigations and some thought that perhaps also Corlanor may also be beneficial in these patients. If this is not satisfactory beta sneha, however, does not cause hypotension but can lower the heart rate. I am not sure that it has been cleared in patients, who have . On review of the records, it appears that the fludrocortisone has been stopped. However, it was reordered at 0.1 mg daily. I am uncertain as to why this was discontinued. At this time, she appears to be comfortable but does say that her heart rate increases when she gets up and goes to the restroom, indeed it did increase a little bit from her resting heart rate in the 70s and 80s up to I believe the kwadwo is all about 105. Blood pressure has remained relatively stable. No indication that she has orthostatic hypotension. PAST MEDICAL HISTORY: Please refer to the notes dictated by my nurse practitioner. SOCIAL HISTORY: Please refer to the notes dictated by my nurse practitioner. FAMILY HISTORY: Please refer to the notes dictated by my nurse practitioner. REVIEW OF SYSTEMS: Please refer to the notes dictated by my nurse practitioner. ALLERGIES: PLEASE REFER TO THE NOTES DICTATED BY MY NURSE PRACTITIONER. MEDICATIONS: Please refer to the notes dictated by my nurse practitioner. PHYSICAL EXAMINATION: Please refer to the notes dictated by my nurse practitioner. We have discussed this patient in detail and I would agree with her assessment and plan except for what I have mentioned in the history of present illness about other medications. VITAL SIGNS: At this time, her vital signs are stable. Her blood pressure is 115/63, heart rate is in the 80s. She is afebrile. Respiratory rate is 18 and O2 saturation is 97%. LABORATORY DATA: Shows hemoglobin 10.8, platelet count 141,000, WBC of 10.3. Sodium is 136, potassium 3.2, chloride was 106, bicarb was 21, creatinine 0.53. BUN was less than 4. Her thyroid function appears to be normal. She did have a 4+ urinary tract infection. IMPRESSION: Mild tachycardia with ambulation and mild hypotension. We would agree with the management of this otherwise healthy appearing female, would consider fludrocortisone 0.1 mg daily. Most likely her symptoms will improve after she delivers, but she is only 32 weeks at this time. We will also evaluate the echocardiogram if this has not already been performed and ordered to ensure that she has no structural abnormalities that may be an etiology for her symptoms. I believe she did have an echocardiogram on the 30 of November that was performed here, that did show a normal ejection fraction with no evidence of diastolic dysfunction and only trace mitral and tricuspid valve regurgitation, which is within normal limits. There were no other significant abnormalities noted on the echocardiogram. Again, we also encouraged fluids and somewhat higher doses sodium in this female. We will be glad to continue to follow the patient with you. Job ID: [id number]
--- NOTE | 2019-12-11 10:31 | EKG ---
Test Reason : STAT Blood Pressure : / mmHG Vent. Rate : 068 BPM Atrial Rate : 068 BPM P-R Int : 142 ms QRS Dur : 080 ms QT Int : 390 ms P-R-T Axes : 049 043 038 degrees QTc Int : 414 ms Normal sinus rhythm Normal ECG When compared with ECG of 03-DEC-2019 10:03, (Unconfirmed) No significant change was found Confirmed by KYMBERLY GAY ([id number]) on 12/11/2019 10:31:39 AM Referred By: JANICE Confirmed By:KYMBERLY GAY
--- NOTE | 2019-12-11 10:32 | EKG ---
Test Reason : Blood Pressure : / mmHG Vent. Rate : 076 BPM Atrial Rate : 076 BPM P-R Int : 138 ms QRS Dur : 078 ms QT Int : 382 ms P-R-T Axes : 040 042 038 degrees QTc Int : 429 ms Normal sinus rhythm Normal ECG When compared with ECG of 07-DEC-2019 18:44, (Unconfirmed) No significant change was found Confirmed by KYMBERLY GAY (2) on 12/11/2019 10:31:43 AM Referred By: JANICE Confirmed By:KYMBERLY GAY
== END 2019-12-08 19:10 | disposition home health service (06) | DRG 833 ==
LOC: L&D/OP 17:04 → 3SE 20:49 → OBSVTOIN 12-07 16:15 → 2NO 12-07 16:36
PROVIDERS: ADMIT Obstetrics & Gynecology; ATTEND Family Medicine
DX: O26.893 Other specified pregnancy related conditions, third trimester (principal); O23.43 Unspecified infection of urinary tract in pregnancy, third trimester; O99.283 Endocrine, nutritional and metabolic diseases complicating pregnancy, third trimester; Z3A.32 32 weeks gestation of pregnancy; Z90.49 Acquired absence of other specified parts of digestive tract; E87.6 Hypokalemia; R00.0 Tachycardia, unspecified
CPT/HCPCS: 36415; 59025; 80053; 80306; 80400; 81001; 82024; 82088; 82533; 84244; 84443; 84484; 84550; 85025; 87086; 93005; 93010; J0696; J0834; J3490

== ENCOUNTER 2019-12-11 12:29 | Day surgery (SDC) | payer OTHER ==
[2019-12-11] MEDS ORDERED: hydrALAZINE 20 MG/ML VIAL SLOW IVP PRN (12:35)
[2019-12-11] MEDS ORDERED: Sodium Chloride 0.9% 1,000 ML IV SCH (12:45)
[2019-12-11 13:06] VITALS: BMI 36.6
--- NOTE | 2019-12-11 14:47 | PDOC.LDHP ---
Labor and Delivery H&P Chief complaint: other (sent from clinic) HPI: 34 y/o G1 at 33w3d, patient of Dr. Gail Bermeo, presents from clinic for fluid hydration and an NST. Denies any new complaints today but continues to have fatigue and weakness. Denies VB, LOF, ctx, or decreased FM. ROS neg for HEENT, cv, pulm, gi, gu, neuro, psych, skin, musculoskeletal or constitutional symptoms other than mentioned above. PMHx, PSHx, Social hx, unchanged from recent admission. Allergies/Adverse Reactions: Allergies Allergy/AdvReac Type Severity Reaction Status Date / Time gluten Allergy Verified 12/06/19 17:49 - Physical Exam Vital signs reviewed and normal: yes General: NAD, resting Lungs: nonlabored breathing Abdomen: gravid Extremeties: no edema FHT: category 1 (140s, mod variability, + accels, no decels) [place] contractions every: occasional - Assessment 34 y/o G1 at 33w3d s/p IV hydration. status reassuring with reactive NST. - Plan -: D/c home with precautions. Advised to keep all appointments.
== END 2019-12-11 14:18 | disposition home or self-care (01) ==
LOC: L&D/OP 12:29 → L&D 13:00 → UNDOADMIN 13:00 → UNDODISIN 14:18 → L&D/OP 14:18
PROVIDERS: ATTEND Family Medicine
DX: O26.813 Pregnancy related exhaustion and fatigue, third trimester (principal); O99.89 Other specified diseases and conditions complicating pregnancy, childbirth and the puerperium; R53.1 Weakness; Z3A.33 33 weeks gestation of pregnancy; Z91.018 Allergy to other foods
CPT/HCPCS: 96360; 96361; 99282

== ENCOUNTER 2019-12-14 10:17 | Day surgery (SDC) | payer OTHER ==
[2019-12-14 11:10] VITALS: BP 110/70; TEMP 98.1; BMI 29.0
[2019-12-14] MEDS ORDERED: hydrALAZINE 20 MG/ML VIAL SLOW IVP PRN (12:47)
[2019-12-14] MEDS ORDERED: Dextrose 5%-Lactated Ringers 1,000 ML IV SCH (13:00)
== END 2019-12-14 15:53 | disposition home health service (06) ==
LOC: L&D/OP 10:17
PROVIDERS: ATTEND Family Medicine
DX: O99.89 Other specified diseases and conditions complicating pregnancy, childbirth and the puerperium (principal); R42 Dizziness and giddiness; R53.83 Other fatigue; Z3A.00 Weeks of gestation of pregnancy not specified; Z79.899 Other long term (current) drug therapy; Z91.018 Allergy to other foods
CPT/HCPCS: 96360; 96361; 99282

== ENCOUNTER 2019-12-19 10:28 | Day surgery (SDC) | payer OTHER ==
[2019-12-19 11:25] VITALS: BMI 38.4
[2019-12-19] MEDS ORDERED: Sodium Chloride 0.9% 1,000 ML IV SCH (12:15)
--- NOTE | 2019-12-19 23:45 | SS ---
DATE OF ADMISSION: 12/19/2019 DATE OF DISCHARGE: 12/19/2019 REGULAR PHYSICIAN: Gail Bermeo MD EVALUATING PHYSICIAN: Rashawn West MD CHIEF COMPLAINT: Here for NST and IV fluid. HISTORY OF PRESENT ILLNESS: Ms. Joaquin is a 34-year-old white G1, P0 with an estimated date of confinement of 01/26/2020, who presents with orders from Dr. Bermeo for IV fluid and nonstress test. Her care has been with Dr. Bermeo and has been complicated by orthostatic hypotension. She has been evaluated by Cardiology and has found no significant underlying disorder. PAST MEDICAL HISTORY: Hypotension as above. PAST SURGICAL HISTORY: Removal of right fallopian tube and cholecystectomy. CURRENT MEDICATIONS: 1. vitamins. 2. Oral potassium twice a day, dosage unknown. 3. Synthroid 100 mcg daily. ALLERGIES: NO KNOWN ALLERGIES. SOCIAL HISTORY: Denies tobacco, alcohol, or drug use. FAMILY HISTORY: Unremarkable. REVIEW OF SYSTEMS: Denies nausea, vomiting, fever, chills, ruptured membranes, vaginal bleeding or decreased movement. PHYSICAL EXAMINATION: VITAL SIGNS: Blood pressure today is 117/71 in triage. GENERAL: She is pleasant. She is extremely pleasant to visit with and has no complaints today. heart tones are stable with spontaneous accelerations. No decelerations are seen. ASSESSMENT: 1. 34 and 4/7th week intrauterine . 2. History of orthostatic hypotension, Cardiology evaluation negative. PLAN: Disposition at this time by Dr. Gail Bermeo is for her to come in twice a week for NST and IV fluids. These orders are standing and she is set to be back here on Tuesday evening for re-evaluation. [facility] ID: [id number] [facility]
== END 2019-12-19 12:30 | disposition home health service (06) ==
LOC: L&D/OP 10:28
PROVIDERS: ATTEND Family Medicine
DX: O99.413 Diseases of the circulatory system complicating pregnancy, third trimester (principal); I95.1 Orthostatic hypotension; Z3A.34 34 weeks gestation of pregnancy; Z79.899 Other long term (current) drug therapy; Z91.018 Allergy to other foods
CPT/HCPCS: 96360; 96361; 99281

== ENCOUNTER 2019-12-21 17:20 | Day surgery (SDC) | payer OTHER ==
[2019-12-21 18:25] VITALS: BP 116/66; TEMP 98.2; BMI 36.6
[2019-12-21] MEDS ORDERED: Lactated Ringer's 1,000 ML IV SCH (19:00)
--- NOTE | 2019-12-24 07:57 | SS ---
DATE OF ADMISSION: 12/21/2019 DATE OF DISCHARGE: 12/21/2019 REGULAR PHYSICIAN: Gail Bermeo MD EVALUATING PHYSICIAN: Rashawn West MD CHIEF COMPLAINT: Here for IV fluid and NST. HISTORY OF PRESENT ILLNESS: Ms. Joaquin is a 34-year-old white G1, P0 with an estimated date of confinement of 01/26/2020, who is well known to me from a previous visit this week, who presents with standing orders for Dr. Bermeo for IV fluid and nonstress test. Her care has been with Dr. Bermeo and has been complicated by an orthostatic hypotension syndrome. Evaluation by Cardiology showed no underlying disorder. PAST MEDICAL HISTORY: Hypotension as above. PAST SURGICAL HISTORY: Salpingectomy and cholecystectomy. CURRENT MEDICATIONS: 1. vitamins. 2. Oral potassium. 3. Synthroid 100 mcg daily. ALLERGIES: NO KNOWN ALLERGIES. SOCIAL HISTORY: Denies tobacco, alcohol, or drug use. FAMILY HISTORY: Unremarkable. REVIEW OF SYSTEMS: Denies nausea, vomiting, fever, chills, ruptured membranes, vaginal bleeding, decreased movement, or recent dizziness. PHYSICAL EXAMINATION: VITAL SIGNS: Vital signs are stable. Her blood pressure today is 110s over 60s. GENERAL: She is extremely pleasant and in no acute distress. heart rate tracing is reassuring with spontaneous accelerations. No decelerations are seen. ASSESSMENT: 1. 34 and 6/7th week intrauterine . 2. History of orthostatic hypotension, cardiology evaluation is negative. PLAN: The patient will be dismissed to home with precautions. Standing disposition by Dr. Gail Bermeo is to have her come in twice a week for IV fluid and nonstress test. Job ID: [id number]
== END 2019-12-21 19:20 | disposition home or self-care (01) ==
LOC: L&D/OP 17:20
PROVIDERS: ATTEND Obstetrics & Gynecology
DX: O99.413 Diseases of the circulatory system complicating pregnancy, third trimester (principal); I95.1 Orthostatic hypotension; Z3A.34 34 weeks gestation of pregnancy; Z79.899 Other long term (current) drug therapy; Z91.018 Allergy to other foods
CPT/HCPCS: 96360; 96361; 99282

== ENCOUNTER 2019-12-26 09:37 | Day surgery (SDC) | payer OTHER ==
[2019-12-26] MEDS ORDERED: Sodium Chloride 0.9% 1,000 ML IV SCH (10:00)
[2019-12-26] MEDS ORDERED: Lactated Ringer's 1,000 ML IV SCH (13:15)
--- NOTE | 2019-12-27 05:21 | SS ---
DATE OF ADMISSION: 12/26/2019 DATE OF DISCHARGE: 12/26/2019 REGULAR PHYSICIAN: Gail Bermeo MD EVALUATING PHYSICIAN: Rashawn West MD CHIEF COMPLAINT: Here for IV fluid and NST. HISTORY OF PRESENT ILLNESS: Ms. Joaquin is a 34-year-old white G1, P0 with an estimated date of confinement of 01/26/2020, who is well known to me from previous visits. She has standing orders from Dr. Gail Bermeo for IV fluid, nonstress test done twice a week. Her care has been with Dr. Bermeo, but has been complicated by orthostatic hypotension syndrome for which Cardiology has evaluated her and has found no underlying disorder. PAST MEDICAL HISTORY: hypotension syndrome as above. PAST SURGICAL HISTORY: Salpingectomy and cholecystectomy. CURRENT MEDICATIONS: 1. vitamins. 2. Oral potassium. 3. Synthroid 100 mcg daily. ALLERGIES: NO KNOWN ALLERGIES. SOCIAL HISTORY: Denies tobacco, alcohol, or drug use. FAMILY HISTORY: Unremarkable. REVIEW OF SYSTEMS: Denies nausea, vomiting, fever, chills, ruptured membranes, vaginal bleeding or decreased movement. She denies recent dizziness. PHYSICAL EXAMINATION: VITAL SIGNS: Vital signs are stable and she is afebrile. Her blood pressure is satisfactory. GENERAL: She is pleasant and in no acute distress. heart rate tracing is stable. Heart tones are reassuring with spontaneous accelerations. No decelerations are seen. ASSESSMENT: 1. 35 and 4/7th week intrauterine . 2. History of orthostatic hypotension syndrome with negative cardiology workup. PLAN: The patient will continue visits twice a week until her delivery per disposition by Gail Bermeo. Job ID: [id number] [facility]
== END 2019-12-26 11:40 | disposition home health service (06) ==
LOC: L&D/OP 09:37
PROVIDERS: ATTEND Family Medicine
DX: O26.53 Maternal hypotension syndrome, third trimester (principal); Z3A.35 35 weeks gestation of pregnancy; Z79.899 Other long term (current) drug therapy; Z91.048 Other nonmedicinal substance allergy status; Z90.79 Acquired absence of other genital organ(s)
CPT/HCPCS: 59025; 96360; 96361; 99281

== ENCOUNTER 2019-12-28 18:44 | Day surgery (SDC) | payer OTHER ==
[2019-12-28 19:40] VITALS: BP 112/69; TEMP 97.7; BMI 36.7
--- NOTE | 2019-12-28 19:40 | PDOC.FPROB ---
FMR OB H&P: HPI - History of Present Illness Chief Complaint: IV fluids for low BP Indentification: 34 up G1 at 36.6 History of Present Illness: Ms. Joaquin is a 34 yo at 36.6 who is here for scheduled IV fluids. She is well known to the hospital service. She has standing orders from Dr. Bermeo for IV fluids twice a week due to severe orthostatic hypotension. Cardiology and endocrinology have been following along but so far there has been no identified explanation for this. She was recently started on fludrocortisone but still has orthostatic hypotensive episodes. Pt states during this she has also been evaluated for PE which she reports as negative. Also on oral potassium and synthroid. No labor sxs-denies CTX, VB/VD. Endorses FM. Feels well today and no concerns otherwise. Primary Care Physician: Dr. Gail Bermeo FMR OB H&P: Current - Care : 1 Para: 0 Gestational age: 35.6 Due date: 01/26/20 - OB Labs RH: unknown Antibody Screen: unknown HIV: unknown RPR: unknown HepBsAg: unknown Quad screen: unknown Urine drug screen: not done Gonorrhea: unknown Chlamydia: unknown FMR OB H&P: History - Past Medical History PMH: Hypothyroidism - OB History OB History: Anemia of on iron Severe orthostatic hypotension-etiology unknown - DIRECTOR OF MANAGED CARE History DIRECTOR OF MANAGED CARE History: Denies - Surgical History Sx History: Denies - Social History Social History: Denies TAD - Family History Family History: Denies FMR OB H&P: Medications - Current Home Medications: Medication Instructions Recorded Confirmed Type Ferrous Sulfate [Iron] 325 mg PO BID 12/06/19 12/21/19 History Levothyroxine Sodium [Tirosint] 100 mcg PO DAILY 12/06/19 12/21/19 History Pnv No.95/Ferrous Fum/Folic AC 1 each PO DAILY 12/06/19 12/21/19 History [ Formula] Fludrocortisone Acetate [Florinef] 1 tab PO DAILY 12/21/19 12/21/19 History Potassium Chloride 1 tab PO BID 12/21/19 12/21/19 History Allergies/Adverse Reactions: Allergies Allergy/AdvReac Type Severity Reaction Status Date / Time gluten Allergy Verified 12/19/19 11:29 FMR OB H&P: ROS - Review of Systems General: reports: other (lighheadedness with stnading). denies: fever/chills, weight/appetite/sleep changes Eyes: denies: vision changes, double vision ENT: denies: rhinorrhea, sore throat Cardiovascular: denies: palpitation, edema, orthopnea Respiratory: denies: cough, shortness of breath Gastrointestinal: denies: abdominal pain, cramping, nausea, vomiting Genitourinary (Female): denies: dysuria, vaginal discharge, vaginal pain, vaginal bleeding, contractions, vaginal pressure Musculoskeletal: denies: stiffness, tenderness Neurologic: denies: loss of counsciousness, headache Endocrine: denies: cold intolerance, heat intolerance Psychological: denies: depression, anxiety FMR OB H&P: Vital Signs - Heart Tones Baseline: 150 Variability: moderate Acceleration: present Deceleration: absent Category: category 1 [place] contractions every: none FMR OB H&P: Physical Exam - Physical Exam General: NAD, awake, alert and oriented HEENT: normocephalic and atraumatic, PERRLA, EOMI, MMM, conjunctiva clear, no scleral icterus Neck: supple, trachea midline Heart: RRR, normal S1/S2, no murmurs/rubs/gallops General: CTAB, no respiratory distress, good air movement, no wheezing Abdomen: soft, gravid, non-tender, bowel sound present Musculoskeletal: pulses present, FROM in all four extremities Neurological: cranial nerves II through XII intact Skin: no rash, good tugor, capillary refill <2 seconds Lymphatic: no unusual bruising or bleeding, no purpura Psychiatric: intact recent and remote memory, good judgement and insight FMR OB H&P: A/P - Problem List (1) Orthostatic hypotension Current Visit: Yes Status: Acute Code(s): I95.1 - ORTHOSTATIC HYPOTENSION (2) with 36 completed weeks gestation Current Visit: Yes Status: Acute Code(s): Z3A.36 - 36 WEEKS GESTATION OF Discussion: Date/Time: 12/28/19 193 34 yo G1 at 36.6 here for scheduled IV fluids for severe orthostatic hypotension 1. sIUP at 36.6 weeks -FHT Cat I, no signs of labor 2. Orthostatic hypotension -1L fluids, monitor VS -Continue fludrocortisone -Continue care with specialists -Continue twice weekly for scheduled IV fluids This H&P was discussed with Dr. Coats who agree with the above documentation and plan.
[2019-12-28] MEDS ORDERED: hydrALAZINE 20 MG/ML VIAL SLOW IVP PRN (19:54)
[2019-12-28] MEDS ORDERED: Lactated Ringer's 1,000 ML IV SCH (20:00)
== END 2019-12-28 20:05 | disposition home or self-care (01) ==
LOC: L&D/OP 18:44
PROVIDERS: ATTEND Family Medicine
DX: O99.413 Diseases of the circulatory system complicating pregnancy, third trimester (principal); I95.1 Orthostatic hypotension; O99.013 Anemia complicating pregnancy, third trimester; D64.9 Anemia, unspecified; O99.283 Endocrine, nutritional and metabolic diseases complicating pregnancy, third trimester; E03.9 Hypothyroidism, unspecified; Z3A.36 36 weeks gestation of pregnancy; Z79.899 Other long term (current) drug therapy; Z91.018 Allergy to other foods

== ENCOUNTER 2020-01-02 10:33 | Day surgery (SDC) | payer OTHER ==
[2020-01-02 11:05] VITALS: BMI 37.3
[2020-01-02] MEDS ORDERED: hydrALAZINE 20 MG/ML VIAL SLOW IVP PRN (11:11)
[2020-01-02] MEDS ORDERED: FLU VACC QS2019-20(6MOS UP)/PF 60 MCG/0.5 ML SYRINGE IM ONE (11:15)
[2020-01-02] MEDS ORDERED: Sodium Chloride 0.9% 1,000 ML IV SCH ×2 (11:15→12:30)
[2020-01-02] MEDS ORDERED: Sodium Chloride 0.45% 1,000 ML IV SCH (12:15)
--- NOTE | 2020-01-02 17:25 | PRG ---
DATE OF SERVICE: 01/02/2020 PRIMARY OB: Dr. Gail Bermeo. CHIEF COMPLAINT: Hypotension. HISTORY OF PRESENT ILLNESS: The patient is a 34-year-old female with an intrauterine at 36 weeks and a day, who has been coming, per cardiology recommendations, 2 to 3 times a week for IV hydration. The patient has a diagnosis of orthostatic hypotension and is having challenging time maintaining volume status. The patient has been counseled to increase her salt intake per the patient at 10,000 mg a day, which she admits that she has not been doing due to the unsavoriness of it. The patient does report that she drinks almost 200 mL of bottled drinks, primarily bottled water and Gatorade. She also takes steroids per her program advocate and p.o. potassium. PAST MEDICAL HISTORY: Anemia and severe orthostatic hypotension. PAST SURGICAL HISTORY: Negative. ALLERGIES: GLUTEN. MEDICATIONS: 1. Iron. 2. Levothyroxine 100 mcg daily. 3. vitamins. 4. Fludrocortisone one tablet daily. 5. Potassium. PHYSICAL EXAMINATION: VITAL SIGNS: On arrival, blood pressure is 116/71, heart rate of 98, respiratory rate of 16, temperature 98.2. GENERAL: She appears to be in no acute distress. She is alert, oriented, cooperative, and pleasant to interact with. HEAD: Normocephalic and atraumatic. LUNGS: Clear to auscultation bilaterally. HEART: Has a regular rate and rhythm. ABDOMEN: Gravid and soft. DIAGNOSTIC DATA: heart tracing shows the fetus with a baseline in the 130s with moderate long-term variability, positive 15 x 15 accelerations, no decelerations. Tocometer showing some irritability, but not felt by the patient. ASSESSMENT AND PLAN: The patient received 2 L of normal saline IV for which she reports that she feels much better and is able to ambulate without experiencing dizziness or presyncopal symptoms. Ms. Noni Joaquin is a 34-year-old with an intrauterine at 36 weeks, experiencing severe orthostatic hypotension of unknown etiology. We did give her 2 L of normal saline. I have counseled her to follow the Cardiology's recommendations to increase her salt intake per the recommendations given and had suggested putting salt into her sweet and Gatorade that she has been taking regularly. We also discussed the idea of documenting how much fluid she is taking and to minimize how much bottled water she drinks and how much total intake and consider cutting back a little at a time to see if her body responds appropriately. The patient had a good response to the IV fluids and is able to ambulate without dizziness at this time and is comfortable walking out the door instead of leaving by wheelchair like she has typically done. The patient has been counseled to follow up with her primary OB, Dr. Gail Bermeo as scheduled and we have encouraged that she follow up with the recommendations of her OB and her providers. Fetus has a category 1 tracing. Job ID: [id number]
== END 2020-01-02 13:11 | disposition home health service, planned readmission (86) ==
LOC: L&D/OP 10:33
PROVIDERS: ATTEND Family Medicine
DX: O99.43 Diseases of the circulatory system complicating the puerperium (principal); I95.1 Orthostatic hypotension; O99.013 Anemia complicating pregnancy, third trimester; D64.9 Anemia, unspecified; Z3A.36 36 weeks gestation of pregnancy; Z79.899 Other long term (current) drug therapy
CPT/HCPCS: 87081; 96360; 96361; 99282

== ENCOUNTER 2020-01-04 18:41 | Day surgery (SDC) | payer OTHER ==
[2020-01-04 19:42] VITALS: BMI 37.3
[2020-01-04] MEDS ORDERED: Sodium Chloride 0.9% 1,000 ML IV SCH (20:15)
--- NOTE | 2020-01-05 01:58 | SS ---
DATE OF ADMISSION: 01/04/2020 DATE OF DISCHARGE: 01/04/2020 REGULAR PHYSICIAN: Gail Bermeo MD. EVALUATING PHYSICIAN: Rashawn West MD CHIEF COMPLAINT: Here for NST and IV fluid. HISTORY OF PRESENT ILLNESS: Ms. Joaquin is a 34-year-old white G1, P0, with an estimated date of confinement of 01/26/2020, who is well known to me from multiple visits for this , who presents with standing orders from Dr. Gail Bermeo for a nonstress test and IV fluid. Her care has been with Dr. Bermeo and has been complicated by an orthostatic hypotension syndrome. Evaluation by Cardiology has shown no underlying disorder. PAST MEDICAL HISTORY: Hypertension as above. PAST SURGICAL HISTORY: Salpingectomy and cholecystectomy. CURRENT MEDICATIONS: 1. vitamins. 2. Oral potassium. 3. Synthroid 100 mcg daily. ALLERGIES: NO KNOWN ALLERGIES. SOCIAL HISTORY: Denies tobacco, alcohol or drug use. FAMILY HISTORY: Unremarkable. REVIEW OF SYSTEMS: Denies nausea, vomiting, fever, chills, vaginal bleeding or decreased movement. She also denies recent dizziness. PHYSICAL EXAMINATION: Her vital signs were stable and reassuring. BP+ 125/64, Pulse= 82. In general, she is pleasant, in no acute distress. heart rate tracing is reassuring with numerous accelerations. No decelerations were seen. No uterine contractions were noted. The patient is infused with 1 L of IV fluid. ASSESSMENT: 1. 36 and 6/7th week intrauterine . 2. Orthostatic hypotension syndrome with negative cardiology workup. PLAN: The patient will be dismissed to home with precautions. She states that she has 2 more visits next week and then will be induced a week after that by Dr. Bermeo. Job ID: [id number] [facility]
== END 2020-01-04 20:36 | disposition home health service (06) ==
LOC: L&D/OP 18:41
PROVIDERS: ATTEND Family Medicine
DX: O99.413 Diseases of the circulatory system complicating pregnancy, third trimester (principal); I95.1 Orthostatic hypotension; O16.3 Unspecified maternal hypertension, third trimester; Z3A.36 36 weeks gestation of pregnancy; Z79.899 Other long term (current) drug therapy; Z91.018 Allergy to other foods
CPT/HCPCS: 59025; 96360; 99282

== ENCOUNTER 2020-01-10 09:55 | Day surgery (SDC) | payer OTHER ==
[2020-01-10 10:16] VITALS: BMI 38.0
[2020-01-10] MEDS ORDERED: FLU VACC QS2019-20(6MOS UP)/PF 60 MCG/0.5 ML SYRINGE IM ONE (10:45)
[2020-01-10] MEDS ORDERED: Sodium Chloride 0.45% 1,000 ML IV SCH (11:45)
[2020-01-10] MEDS ORDERED: Sodium Chloride 0.9% 1,000 ML IV SCH (11:45)
== END 2020-01-10 11:50 | disposition home or self-care (01) ==
LOC: L&D/OP 09:55
PROVIDERS: ATTEND Family Medicine
DX: Z34.90 Encounter for supervision of normal pregnancy, unspecified, unspecified trimester (principal); Z3A.00 Weeks of gestation of pregnancy not specified

== ENCOUNTER 2021-12-17 12:49 | Outpatient (CLI) | payer BC | END 2021-12-17 12:50 | disposition home or self-care (01) | LOC: DTY/OP 12:49 | PROVIDERS: ATTEND Family Medicine | DX: Z68.30 Body mass index [BMI] 30.0-30.9, adult (principal) | CPT/HCPCS: 97802 ==